=== PATIENT | female | born 1990 | race Caucasian/White ===

== ENCOUNTER 2019-06-10 19:17 | Inpatient (IN) | payer OTHER, MEDICAID, SELFPAY ==
[2019-06-10] VITALS (7 sets, daily range): BP systolic 116–132; BP diastolic 73–85; PULSE 116–142; RESP 17–24; TEMP 36.6; O2SAT 96–100; BMI 28.0
--- NOTE | 2019-06-10 20:04 | PC.NURSE ---
2 attempt to start iv, no success
--- NOTE | 2019-06-10 20:15 | ED_ITS ---
HPI - Chest Pain General Chief Complaint: Chest Pain Stated Complaint: STATES ENDOCARDITIS, NEEDS VANCOMYCIN Time Seen by Provider: 06/10/19 19:35 Source: patient Mode of arrival: ambulatory Limitations: no limitations History of Present Illness HPI narrative: This patient is a 28-year-old female with a history of heroin and methamphetamine abuse. She presented at [facility] in [place], [place] 06/01/2019 for left leg pain. There is no evidence of DVT. Septic pulmonary emboli were noted on chest x-ray. CTA of the chest showed evidence of PE, septic pulmonary emboli were again identified. She also had a left thigh abscess. She was transferred to [facility] for probable endocarditis. Echo revealed vegetation associated with the tricuspid valve. An I and D was also performed on an abscessed the left thigh. This was a site of drug injections. She was receiving IV vancomycin through a PICC line since the original diagnosis. Today she was to be transferred back to [facility] from [facility] for ongoing treatment. Blood cultures have revealed MRSA. The intent was ongoing IV vancomycin treatment for the 5 weeks. After arrival at [facility] the patient apparently came in an argument. During admission process he went to leave for cigarette. She ended up leaving Against Medical Advice, the PICC line was pulled. She comes here tonight asking for IV vancomycin. Records reveals she was on a regimen of 750 mg IV every 8 hr. She was approximately 4 hr behind schedule upon presentation here. She has been without heroin or methamphetamine since initial presentation to the hospitals. She has been treated with Suboxone since admission. She has also received Ativan and clonidine for withdrawal symptoms. She denies fever chills. She has tachycardia but no chest discomfort. She has ongoing left leg pain, her original presentation. Related Data Allergies Allergy/AdvReac Type Severity Reaction Status Date / Time No Known Drug Allergies Allergy Verified 06/10/19 19:28 Review of Systems Review of Systems ROS Unobtainable: All systems reviewed & are unremarkable except as noted in HPI and below Constitutional Reports body ache(s), Denies chills, Denies fever(s) and Denies weakness Eyes Comments: No act complaints. ENT Ears, Nose, Mouth, and Throat: Denies vertigo, Denies dizziness, Denies neck pain and Denies sore throat Cardiovascular Denies chest pain, Denies edema, Reports palpitations and Denies dyspnea Respiratory Denies cough and Denies dyspnea Gastrointestinal Gastrointestinal: Denies change in bowel habits, Denies cramping, Denies diarrhea, Denies nausea and Denies vomiting Genitourinary Denies dysuria Comments: Not , confirmed by recent care testing. Musculoskeletal Denies neck pain and Denies numbness Comments: Left lower extremity pain. Integumentary/Breasts Denies rash and Reports wounds (Left leg operative site.) Neurologic Denies confusion, Denies vertigo, Denies dizziness, Denies numbness and Denies weakness Psychiatric Reports anxiety, Denies confusion and Denies depression Endocrine Reports palpitations [facility] Medical History (Updated 06/11/19 @ 05:20 by Michael Tyson MD) Abscess of left leg (Acute) Endocarditis (Acute) IV drug abuse (Acute) Social History Smoking Status: Current every day smoker Social History (Updated 06/11/19 @ 05:00 by Michael Tyson MD) Smoking Status: Current every day smoker substance use type: marijuana, heroin and methamphetamine Exam Initial Vital Signs Initial Vital Signs: Vital Signs Pulse Rate 142 H 06/10/19 19:29 Respiratory Rate 17 06/10/19 19:29 Blood Pressure 132/78 06/10/19 19:29 Pulse Oximetry 100 06/10/19 19:29 Const General: cooperative, anxious and No lethargic Nutritional Appearance: well nourished Orientation: alert, awake and oriented x3 HENMT Head: normocephalic and atraumatic Mouth: oral mucosae normal and moist mucous membranes Throat: posterior oropharynx normal Eyes Conjunctivae: conjunctivae normal Pupils: PERRL EOM: EOM intact bilaterally Neck Neck: no meningeal signs and No lymphadenopathy Resp Effort & Inspection: normal respiratory effort Auscultation: clear to auscultation bilaterally Cardio Rate: tachycardic Rhythm: regular rhythm Heart Sounds: S1 normal, S2 normal and no murmurs GI Inspection: normal to inspection Palpation: soft and No tender Back/Spine/Pelvis Back: No back tenderness Skin Other: Track dudley. Multiple contusions in both arms from injections. Healing surgical site in the left anterior thigh. Neuro General: alert, oriented x3, gait normal and no focal motor deficits Speech: speech normal Extrem Other: Normal peripheral pulses in all extremities. Psych Appearance: well kempt Mental Status: mental status grossly normal Attitude: cooperative Thought Content: normal Judgment: judgment good Course Course Narrative: 11:30PM. 06/10/2019.A PICC nurse was consulted. A right arm PICC line was again established. Chest x-ray confirmed appropriate placement. IV vancomycin 1250 mg was given. She was scheduled for a swing bed at [facility], this is a community where she lives and resides. She desires to return there. [place] is a critical access hospital. I contacted the ER physician, Dr. Trejo, 2 times during this shift. [facility] has a telemedicine hospitalist program in the evenings/at night. I have been unable to reach the hospitalist directly. She will be managed in the ER until morning, pursuing transfer back to [facility] in the morning. 07:30. 06/11/2019. Contact was not made with the hospitalist, or apparently the swing regional flatbed truck driver at [facility] last night. [facility] was being called again this morning, apparently the manager meat for the swing beds is not in yet. The patient has been given a 2nd dose of IV vancomycin here in the ER. During this shift last night I did discuss the case with the local hospitalist, JENNY Gonzales. The intent was to possibly keep the patient here long enough to secure the swing bed at [facility], she will require 5 weeks of IV antibiotic therapy. Disposition is still pending. The case was discussed with my partner here in the ER, Dr. Quick. Necessary care for IV antibiotics and meds for detox has been taken care of through the night. Dr. Quick will follow through with disposition. Orders Ordered: ED Orders 06/10/19 23:25 Basic Metabolic Panel Stat Blood Culture Stat Complete Blood Count AUTO DIFF Stat Lactate (Lactic Acid) Stat Vancomycin HCl/Dextrose (Vancomycin) 750 mg in 150 mls @ 150 mls/hr IV NOW ONE Stop: 06/11/19 08:21 Discontinued Medications Clonidine HCl (Catapres) 0.1 mg PO NOW ONE Stop: 06/11/19 00:41 Last Admin: 06/11/19 00:45 Dose: 0.1 mg Clonidine HCl (Catapres) 0.1 mg PO NOW ONE Stop: 06/11/19 05:21 Last Admin: 06/11/19 05:41 Dose: 0.1 mg Vancomycin HCl 1,250 mg/ (Sodium Chloride) 250 mls @ 250 mls/hr IV NOW ONE Stop: 06/10/19 22:59 Last Infusion: 06/11/19 00:41 Dose: 0 mls/hr Admin: 06/10/19 23:28 Dose: 250 mls/hr Ketorolac Tromethamine (Toradol) 30 mg IV NOW ONE Stop: 06/11/19 03:49 Last Admin: 06/11/19 03:59 Dose: 30 mg Lorazepam (Ativan) 1 mg PO NOW ONE Stop: 06/11/19 00:41 Last Admin: 06/11/19 00:45 Dose: 1 mg Lorazepam (Ativan) 1 mg PO NOW ONE Stop: 06/11/19 05:21 Last Admin: 06/11/19 05:26 Dose: 1 mg Vital Signs - 8 hr 06/10/19 23:55 06/11/19 00:48 06/11/19 02:28 Pulse Rate 116 H 115 H 106 H Respiratory Rate 20 18 Blood Pressure [Left Arm] 123/73 127/88 121/79 Pulse Oximetry 96 99 98 06/11/19 03:53 06/11/19 05:30 Pulse Rate 126 H 120 H Respiratory Rate 20 Blood Pressure [Left Arm] 136/87 131/81 Pulse Oximetry 97 96 MDM - Chest Pain Lab Data Result diagrams: 06/10/19 23:25 06/10/19 23:25 Lab Results 06/10/19 06/10/19 06/10/19 Range/Units 20:42 23:25 23:25 WBC 12.3 H (4.5-11.0) X10^3/uL RBC 3.50 L (4.0-5.2) X10^6/uL Hgb 9.4 L (12.0-16.0) g/dL Hct 28.2 L (36-46) % MCV 80.7 (80-100) fL MCH 26.8 (26-34) PG MCHC 33.2 (30-36) % RDW 16.4 H (11.6-14.8) % Plt Count 861 H (150-400) X10^3/uL Neut % (Auto) 56.0 (50-75) % Lymph % (Auto) 34.9 (25-40) % [place] % (Auto) 6.3 (3-14) % Eos % (Auto) 1.5 L (2-4) % Baso % (Auto) 1.3 (0-2) % Neut # (Auto) 6900 (7310-5644) /uL Lymph # (Auto) 4300 (6588-0410) /uL [place] # (Auto) 800 (0-900) /uL Eos # (Auto) 200 (0-450) /uL Baso # (Auto) 200 H (0-100) /uL Platelet Estimate Increased on smear RBC Morphology Not Reportable Sodium 139 (137-145) mmol/L Potassium 4.3 (3.4-5.1) mmol/L Chloride 101 (98-107) mmol/L Carbon Dioxide 29 (22-32) mmol/L BUN 19 H (7-17) mg/dL Creatinine 0.60 (0.52-1.04) mg/dL Estimated GFR > 60.0 (>60) mL/min BUN/Creatinine Ratio 31.7 H (6-22) Glucose 112 H (70-100) mg/dL Lactate (0.7-2.1) mmol/L Calcium 9.8 (8.4-10.2) mg/dL Urine Opiates Screen Negative (Negative) Ur Oxycodone Screen Positive H (Negative) Urine Methadone Screen Negative (Negative) Ur Barbiturates Screen Negative (Negative) U Tricyclic Antidepress Negative (Negative) Ur Phencyclidine Scrn Negative (Negative) Ur Amphetamines Screen Negative (Negative) U Methamphetamines Scrn Negative (Negative) Ur MDMA Scrn (Ecstasy) Negative (Negative) U Benzodiazepines Scrn Positive H (Negative) Urine Cocaine Screen Negative (Negative) U Marijuana (THC) Screen Positive H (Negative) 06/10/19 Range/Units 23:25 WBC (4.5-11.0) X10^3/uL RBC (4.0-5.2) X10^6/uL Hgb (12.0-16.0) g/dL Hct (36-46) % MCV (80-100) fL MCH (26-34) PG MCHC (30-36) % RDW (11.6-14.8) % Plt Count (150-400) X10^3/uL Neut % (Auto) (50-75) % Lymph % (Auto) (25-40) % [place] % (Auto) (3-14) % Eos % (Auto) (2-4) % Baso % (Auto) (0-2) % Neut # (Auto) (2337-0323) /uL Lymph # (Auto) (7582-9484) /uL [place] # (Auto) (0-900) /uL Eos # (Auto) (0-450) /uL Baso # (Auto) (0-100) /uL Platelet Estimate RBC Morphology Sodium (137-145) mmol/L Potassium (3.4-5.1) mmol/L Chloride (98-107) mmol/L Carbon Dioxide (22-32) mmol/L BUN (7-17) mg/dL Creatinine (0.52-1.04) mg/dL Estimated GFR (>60) mL/min BUN/Creatinine Ratio (6-22) Glucose (70-100) mg/dL Lactate 1.1 (0.7-2.1) mmol/L Calcium (8.4-10.2) mg/dL Urine Opiates Screen (Negative) Ur Oxycodone Screen (Negative) Urine Methadone Screen (Negative) Ur Barbiturates Screen (Negative) U Tricyclic Antidepress (Negative) Ur Phencyclidine Scrn (Negative) Ur Amphetamines Screen (Negative) U Methamphetamines Scrn (Negative) Ur MDMA Scrn (Ecstasy) (Negative) U Benzodiazepines Scrn (Negative) Urine Cocaine Screen (Negative) U Marijuana (THC) Screen (Negative) Point of Care Testing Test Results Negative Urine Dip Bedside Urine Glucose Negative Bedside Urine Bilirubin - Negative Bedside Urine Ketone - Negative Urine Specific [place] 1.020 Bedside Urine Occult Blood - Negative Bedside Urine pH 6.0 Bedside Urine Protein +/- 15 Bedside Urine Urobilinogen +/- 1mg Bedside Urine Nitrite - Negative Bedside Urine Leukocytes - Negative Esterase Imaging Data Chest x-ray: My impression: Right PICC line placement is confirmed. ECG Data Attestation: I personally reviewed and interpreted this ECG as follows: (Sinus tachycardia rate 129 bpm. Normal intervals. No ectopy. No acute ST T wave changes.) Discharge Plan Departure Patient Disposition: [facility] Clinical Impression: Drug abuse, IV Endocarditis Qualifiers: Endocarditis type: infective Infective endocarditis organism: bacterial Chronicity: acute Qualified Code(s): I33.0 - Acute and subacute infective endocarditis
--- NOTE | 2019-06-10 20:40 | PC.NURSE ---
has history of iv drug use. had been in [facility] for about 1 week with endocarditis. was being transferred to [facility] and had left [place] due to the way she was being treated.
[2019-06-10 21:04] LABS: Urine Amphetamines Negative (Negative); Urine Barbiturates Negative (Negative); Urine Benzodiazepines Positive (Negative); Urine Cocaine Negative (Negative); Urine MDMA Negative (Negative); Urine Methadone Negative (Negative); Urine Methamphetamines Negative (Negative); Urine Morphine/Opi cutoff 2000 Negative (Negative); Urine Oxycodone Positive (Negative); Urine Phencyclidine Negative (Negative); Urine Tetrahydrocannabinol Positive (Negative); Urine Tricyclic Antidepressant Negative (Negative)
--- NOTE | 2019-06-10 22:07 | PC.NURSE ---
Precision Picc placement at bedside.
--- NOTE | 2019-06-10 22:29 | DI.RAD.S_ITS ---
PROCEDURE: XR CHEST FOR PICC 1V INDICATIONS: picc verification TECHNIQUE: One view of the chest was acquired. COMPARISON: Lung bases on CT abdomen and pelvis 03/25/2018. FINDINGS: Surgical changes and devices: Right-sided PICC line with the catheter tip terminating at the cavoatrial junction in the expected location. Lungs and pleura: Lungs are clear. No pleural effusions or pneumothorax. Mediastinum: Mediastinal contours appear normal. Heart size is normal. Bones and chest wall: No suspicious bony lesions. Overlying soft tissues appear unremarkable. IMPRESSION: Right-sided PICC line with the tip terminating in at the cavoatrial junction and the expected location. No pneumothorax. Dictated by: Marcelino Nunez M.D. on 06/11/2019 at 7:57 Approved by: Marcelino Nunez M.D. on 06/11/2019 at 7:57
[2019-06-10] MEDS: VANCOMYCIN 1,250 MG in SODIUM CHLORIDE 0.9% 250 ML IV (23:28)
[2019-06-10 23:36] LABS: Add Manual Diff / Slide Review NO; Basophils Absolute Auto 200 /uL (0-100); Basophils Percent Auto 1.3 % (0-2); Eosinophils Absolute Auto 200 /uL (0-450); Eosinophils Percent Auto 1.5 % (2-4); Hematocrit 28.2 % (36-46); Hemoglobin 9.4 g/dL (12.0-16.0); Lymphocytes Absolute Auto 4300 /uL (1100-4500); Lymphocytes Percent Auto 34.9 % (25-40); Mean Corpuscular HGB Conc 33.2 % (30-36); Mean Corpuscular Hemoglobin 26.8 PG (26-34); Mean Corpuscular Volume 80.7 fL (80-100); Monocytes Absolute Auto 800 /uL (0-900); Monocytes Percent Auto 6.3 % (3-14); Neutrophils Absolute Auto 6900 /uL (1500-7000); Platelet Count 861 X10^3/uL (150-400); Red Cell Distribution Width 16.4 % (11.6-14.8); White Blood Cell Count 12.3 X10^3/uL (4.5-11.0)
[2019-06-10 23:47] LABS: BUN Creatinine Ratio 31.7 (6-22); Blood Urea Nitrogen 19 mg/dL (7-17); Calcium 9.8 mg/dL (8.4-10.2); Carbon Dioxide 29 mmol/L (22-32); Chloride 101 mmol/L (98-107); Estimated Glomerular Filt Rate > 60.0 mL/min (>60); Glucose 112 mg/dL (70-100); HEMOLYSIS < 15 (0-50); Lactate (Lactic Acid) 1.1 mmol/L (0.7-2.1); Potassium 4.3 mmol/L (3.4-5.1); Sodium 139 mmol/L (137-145)
[2019-06-10 23:52] LABS: Platelet Estimate Increased on smear
[2019-06-11] VITALS (10 sets, daily range): BP systolic 110–136; BP diastolic 57–88; PULSE 97–132; RESP 14–20; TEMP 36.4–36.7; O2SAT 96–100; BMI 28.0
[2019-06-11] MEDS: cloNIDine 0.1 MG TABLET PO ×3 (00:45→14:34)
[2019-06-11] MEDS: LORazepam 0.5 MG TABLET 1 MG PO ×2 (00:45→05:26)
--- NOTE | 2019-06-11 02:39 | PC.NURSE ---
She was given ativan and clonidine due to the fact that she did not have her suboxone tonight,she stated she felt calmer after.
[2019-06-11] MEDS: KETOROLAC 60 MG/2 ML VIAL 30 MG IV (03:59)
--- NOTE | 2019-06-11 05:19 | PC.NURSE ---
She stated she feels like she is crawling out of her skin,has hot and cold flashes.DR Tyson aware.
[2019-06-11] MEDS: VANCOMYCIN 750 MG/150 ML FROZ.PIGGY 150 MG IV ×3 (08:02→21:16)
--- NOTE | 2019-06-11 08:02 | PC.NURSE ---
No security staff at the facility this morning, with the Doctors permission I walked the patient across the street so she could smoke. She was cooperative.
[2019-06-11] MEDS: ONDANSETRON 4 MG/2 ML INJ IV (08:16)
[2019-06-11] MEDS: LORazepam 0.5 MG TABLET 2 MG PO (10:30)
--- NOTE | 2019-06-11 12:59 | PM.HP.1 ---
History of Present Illness Date Patient Seen: 06/11/19 Chief complaint: STATES ENDOCARDITIS, NEEDS VANCOMYCIN Narrative: The patient is a 28-year-old female with a history of IV drug abuse, bipolar disease, new diagnosis of tricuspid valve endocarditis, MRSA bacteremia, septic emboli with cavitary lesions of the lung, septic left hip status post I&D, who was admitted to [facility] in [place] for evaluation of left hip pain. Patient's course was complicated but ultimately was found to have MRSA bacteremia. A transesophageal echocardiogram was obtained which showed a mobile echogenic structure involving the tricuspid valve. This was felt to be a vegetation. She had moderate tricuspid regurgitation. Her MRSA was susceptible to vancomycin. Infectious Disease was consulted and she was continued on IV Vanco. Her white count improved, she was hemodynamically stable. Patient was also found to have cavitary lung lesions on CT a. These were felt to be septic emboli and were improving on her prior chest x-ray. She complained of pain in the left hip and underwent a fluid aspiration of the hip or the cultures were positive for MRSA. Patient had an orthopedic surgery consult and had a washout of the left hip on June 05, 2019. Patient has a history of IV heroin and meth use. She last used meth and heroin about 1 week ago. The patient was also started on Suboxone 12 mg twice daily. The recommendation was for her to continue 6 weeks of IV antibiotics completing this on July 17. The patient was transferred to [facility] to their swing bed for ongoing antibiotic treatment. Patient got to [facility] apparently had an altercation with the nurse and left the hospital Against Medical Advice. The PICC line was pulled and the patient left the facility. She presented to [facility] for vancomycin treatment. Patient did receive a dose of Vanco with the plans for her to be transferred back to [facility]. Unfortunately there were no beds available for her. Attempts were made for her to be transferred back to [facility] however it was felt the would not be indicated. The patient is admitted to the hospital at this time awaiting placement for long-term IV antibiotic treatment for her endocarditis. The patient has not taken her Suboxone in several hours. She reports feeling sick, ill all over, she feels like she is withdrawing from opiates. She has had some nausea, she had an episode of vomiting last night, no hematemesis melena or bright red blood per rectum. Patient does report some bleeding from her rectum with a hard stool. She has no dysuria hematuria or pyuria she has had no fevers. Patient History Medical History (Updated 06/11/19 @ 13:05 by Amie Hardy MD) Abscess of left leg (Acute) Bipolar affective disorder (Acute) Endocarditis (Acute) IV drug abuse (Acute) Family History (Updated 06/11/19 @ 13:04 by Amie Hardy MD) Mother Methamphetamine addiction Social History (Updated 06/11/19 @ 05:00 by Michael Tyson MD) household members: friend(s) Smoking Status: Current every day smoker alcohol intake: former substance use type: marijuana, heroin and methamphetamine Family & Social History Family History (Updated 06/11/19 @ 13:04 by Amie Hardy MD) Mother Methamphetamine addiction Social History: household members friend(s) Prior Living Arrangements Homeless Safety & Behavioral: Feels Safe in Current Yes Environment Been Physically Hurt or No Threatened By a Person Suicidal Ideation Description None Suicide Plan Description No Plan Tobacco & Substance use: Tobacco type cigarettes,cannabis/marijuana Smoking Status Current every day smoker Smoking packs per day 0.5 alcohol intake former alcohol intake frequency other Substance Use Type marijuana,heroin,methamphetamine Meds Allergies Allergy/AdvReac Type Severity Reaction Status Date / Time No Known Drug Allergies Allergy Verified 06/10/19 19:28 Review of Systems Review of Systems All systems reviewed & are unremarkable except as noted in HPI and below Exam Vital Signs (past 8 hours): - 06/11/19 05:30 06/11/19 08:01 06/11/19 08:20 Temperature 97.6 F Pulse Rate 120 H 97 H Respiratory Rate 20 14 Blood Pressure [Left Arm] 131/81 110/70 Pulse Oximetry 96 99 06/11/19 10:34 06/11/19 11:48 Temperature Pulse Rate 101 H 102 H Respiratory Rate 18 18 Blood Pressure [Left Arm] 110/57 L 112/68 Pulse Oximetry 98 99 Oxygen Delivery Method Room Air Narrative Exam Narrative: Withdrawn ill-appearing female HEENT: Normocephalic atraumatic, extraocular muscles are intact, oropharynx is clear, neck is supple, there is no adenopathy Lungs: Clear to auscultation Cardiac exam: Regular rate and rhythm normal S1-S2 with a 2/6 systolic ejection murmur Abdomen soft nontender nondistended without hepatosplenomegaly Extremities: No edema, left hip with Steri-Strips in Neuro exam: Nonfocal Skin: Tattoos on the abdomen no other lesions noted Objective Labs Result Diagrams: 06/10/19 23:25 06/10/19 23:25 Labs: Laboratory Results - last 24 hr 06/10/19 06/10/19 06/10/19 20:42 23:25 23:25 WBC 12.3 H RBC 3.50 L Hgb 9.4 L Hct 28.2 L MCV 80.7 MCH 26.8 MCHC 33.2 RDW 16.4 H Plt Count 861 H Neut % (Auto) 56.0 Lymph % (Auto) 34.9 [place] % (Auto) 6.3 Eos % (Auto) 1.5 L Baso % (Auto) 1.3 Neut # (Auto) 6900 Lymph # (Auto) 4300 [place] # (Auto) 800 Eos # (Auto) 200 Baso # (Auto) 200 H Platelet Estimate Increased on smear RBC Morphology Not Reportable Sodium 139 Potassium 4.3 Chloride 101 Carbon Dioxide 29 BUN 19 H Creatinine 0.60 Estimated GFR > 60.0 BUN/Creatinine Ratio 31.7 H Glucose 112 H Lactate Calcium 9.8 Urine Opiates Screen Negative Ur Oxycodone Screen Positive H Urine Methadone Screen Negative Ur Barbiturates Screen Negative U Tricyclic Antidepress Negative Ur Phencyclidine Scrn Negative Ur Amphetamines Screen Negative U Methamphetamines Scrn Negative Ur MDMA Scrn (Ecstasy) Negative U Benzodiazepines Scrn Positive H Urine Cocaine Screen Negative U Marijuana (THC) Screen Positive H 06/10/19 23:25 WBC RBC Hgb Hct MCV MCH MCHC RDW Plt Count Neut % (Auto) Lymph % (Auto) [place] % (Auto) Eos % (Auto) Baso % (Auto) Neut # (Auto) Lymph # (Auto) [place] # (Auto) Eos # (Auto) Baso # (Auto) Platelet Estimate RBC Morphology Sodium Potassium Chloride Carbon Dioxide BUN Creatinine Estimated GFR BUN/Creatinine Ratio Glucose Lactate 1.1 Calcium Urine Opiates Screen Ur Oxycodone Screen Urine Methadone Screen Ur Barbiturates Screen U Tricyclic Antidepress Ur Phencyclidine Scrn Ur Amphetamines Screen U Methamphetamines Scrn Ur MDMA Scrn (Ecstasy) U Benzodiazepines Scrn Urine Cocaine Screen U Marijuana (THC) Screen Assessment & Plan Assessment & Plan narrative: 1. 28-year-old female with a history of MRSA endocarditis, patient with a history of IVDA, heroin use, methamphetamine use, patient underwent extensive workup at [facility] in [place]. Echocardiogram reveals a projectile mobile mass involving the tricuspid valve. There was found to be moderate tricuspid regurgitation as well. Plans were made for the patient to transfer to [facility] for ongoing antibiotics. The patient was to take vancomycin 750 mg IV q.8 hours for 5 weeks. She left the facility abruptly in presented to this hospital. The patient has been restarted on her vancomycin, plans are to anticipate discharge back to [facility] or another facility for long-term IV antibiotics. 2. History of opioid addiction, patient on Suboxone she currently is withdrawing at this time. Will resume Suboxone. Will continue with clonidine and Ativan as needed as well. 3. Nicotine addiction, resume nicotine patch 4. Bipolar affective disorder, currently untreated, continue with Ativan as needed 5. History of hip infection status post I&D of the left hip, currently on any treatment for MRSA endocarditis which will cover this as well. 6. , septic emboli of the chest, this has been improving. Will follow up with chest x-ray and continue antibiotics as above. Anemia chronic, Patient is been admitted to the hospital and will continue her IV vancomycin. Will arrange for transfer as soon as this can be arranged. Will repeat ESR CRP and procalcitonin. Will continue her on her nicotine patch Suboxone and clonidine. Will continue other usual medications as prescribed following her discharge. The patient is a full code will note this in her record accordingly. Quality VTE Deep Vein Thrombosis/Pulmonary Embolism Present on Admission: No
--- NOTE | 2019-06-11 13:10 | P.HP_ITS ---
History of Present Illness Date Patient Seen: 06/11/19 Chief complaint: STATES ENDOCARDITIS, NEEDS VANCOMYCIN Narrative: The patient is a 28-year-old female with a history of IV drug abuse, bipolar disease, new diagnosis of tricuspid valve endocarditis, MRSA bacteremia, septic emboli with cavitary lesions of the lung, septic left hip status post I&D, who was admitted to [facility] in [place] for evaluation of left hip pain. Patient's course was complicated but ultimately was found to have MRSA bacteremia. A transesophageal echocardiogram was obtained which showed a mobile echogenic structure involving the tricuspid valve. This was felt to be a vegetation. She had moderate tricuspid regurgitation. Her MRSA was susceptible to vancomycin. Infectious Disease was consulted and she was continued on IV Vanco. Her white count improved, she was hemodynamically stable. Patient was also found to have cavitary lung lesions on CT a. These were felt to be septic emboli and were improving on her prior chest x-ray. She complained of pain in the left hip and underwent a fluid aspiration of the hip or the cultures were positive for MRSA. Patient had an orthopedic surgery consult and had a washout of the left hip on June 05, 2019. Patient has a history of IV heroin and meth use. She last used meth and heroin about 1 week ago. The patient was also started on Suboxone 12 mg twice daily. The recommendation was for her to continue 6 weeks of IV antibiotics completing this on July 17. The patient was transferred to [facility] to their swing bed for ongoing antibiotic treatment. Patient got to [facility] apparently had an altercation with the nurse and left the hospital Against Medical Advice. The PICC line was pulled and the patient left the facility. She presented to [facility] Emergency Department for vancomycin treatment. Patient did receive a dose of Vanco with the plans for her to be transferred back to [facility]. Unfortunately there were no beds available for her. Attempts were made for her to be transferred back to [facility] however it was felt the would not be indicated. The patient is admitted to the hospital at this time awaiting placement for long-term IV antibiotic treatment for her endocarditis. The patient has not taken her Suboxone in several hours. She reports feeling sick, ill all over, she feels like she is withdrawing from opiates. She has had some nausea, she had an episode of vomiting last night, no hematemesis melena or bright red blood per rectum. Patient does report some bleeding from her rectum with a hard stool. She has no dysuria hematuria or pyuria she has had no fevers. Patient History Medical History (Updated 06/11/19 @ 13:05 by Amie Hardy MD) Abscess of left leg (Acute) Bipolar affective disorder (Acute) Endocarditis (Acute) IV drug abuse (Acute) Family History (Updated 06/11/19 @ 13:04 by Amie Hardy MD) Mother Methamphetamine addiction Social History (Updated 06/11/19 @ 05:00 by Michael Tyson MD) household members: friend(s) Smoking Status: Current every day smoker alcohol intake: former substance use type: marijuana, heroin and methamphetamine Family & Social History Family History (Updated 06/11/19 @ 13:04 by Amie Hardy MD) Mother Methamphetamine addiction Social History: household members friend(s) Prior Living Arrangements Homeless Safety & Behavioral: Feels Safe in Current Yes Environment Been Physically Hurt or No Threatened By a Person Suicidal Ideation Description None Suicide Plan Description No Plan Tobacco & Substance use: Tobacco type cigarettes,cannabis/marijuana Smoking Status Current every day smoker Smoking packs per day 0.5 alcohol intake former alcohol intake frequency other Substance Use Type marijuana,heroin,methamphetamine Meds Allergies Allergy/AdvReac Type Severity Reaction Status Date / Time No Known Drug Allergies Allergy Verified 06/10/19 19:28 Review of Systems Review of Systems All systems reviewed & are unremarkable except as noted in HPI and below Exam Vital Signs (past 8 hours): - 06/11/19 05:30 06/11/19 08:01 06/11/19 08:20 Temperature 97.6 F Pulse Rate 120 H 97 H Respiratory Rate 20 14 Blood Pressure [Left Arm] 131/81 110/70 Pulse Oximetry 96 99 06/11/19 10:34 06/11/19 11:48 Temperature Pulse Rate 101 H 102 H Respiratory Rate 18 18 Blood Pressure [Left Arm] 110/57 L 112/68 Pulse Oximetry 98 99 Oxygen Delivery Method Room Air Narrative Exam Narrative: Withdrawn ill-appearing female HEENT: Normocephalic atraumatic, extraocular muscles are intact, oropharynx is clear, neck is supple, there is no adenopathy Lungs: Clear to auscultation Cardiac exam: Regular rate and rhythm normal S1-S2 with a 2/6 systolic ejection murmur Abdomen soft nontender nondistended without hepatosplenomegaly Extremities: No edema, left hip with Steri-Strips in Neuro exam: Nonfocal Skin: Tattoos on the abdomen no other lesions noted Objective Labs Result Diagrams: 06/10/19 23:25 06/10/19 23:25 Labs: Laboratory Results - last 24 hr 06/10/19 06/10/19 06/10/19 20:42 23:25 23:25 WBC 12.3 H RBC 3.50 L Hgb 9.4 L Hct 28.2 L MCV 80.7 MCH 26.8 MCHC 33.2 RDW 16.4 H Plt Count 861 H Neut % (Auto) 56.0 Lymph % (Auto) 34.9 [place] % (Auto) 6.3 Eos % (Auto) 1.5 L Baso % (Auto) 1.3 Neut # (Auto) 6900 Lymph # (Auto) 4300 [place] # (Auto) 800 Eos # (Auto) 200 Baso # (Auto) 200 H Platelet Estimate Increased on smear RBC Morphology Not Reportable Sodium 139 Potassium 4.3 Chloride 101 Carbon Dioxide 29 BUN 19 H Creatinine 0.60 Estimated GFR > 60.0 BUN/Creatinine Ratio 31.7 H Glucose 112 H Lactate Calcium 9.8 Urine Opiates Screen Negative Ur Oxycodone Screen Positive H Urine Methadone Screen Negative Ur Barbiturates Screen Negative U Tricyclic Antidepress Negative Ur Phencyclidine Scrn Negative Ur Amphetamines Screen Negative U Methamphetamines Scrn Negative Ur MDMA Scrn (Ecstasy) Negative U Benzodiazepines Scrn Positive H Urine Cocaine Screen Negative U Marijuana (THC) Screen Positive H 06/10/19 23:25 WBC RBC Hgb Hct MCV MCH MCHC RDW Plt Count Neut % (Auto) Lymph % (Auto) [place] % (Auto) Eos % (Auto) Baso % (Auto) Neut # (Auto) Lymph # (Auto) [place] # (Auto) Eos # (Auto) Baso # (Auto) Platelet Estimate RBC Morphology Sodium Potassium Chloride Carbon Dioxide BUN Creatinine Estimated GFR BUN/Creatinine Ratio Glucose Lactate 1.1 Calcium Urine Opiates Screen Ur Oxycodone Screen Urine Methadone Screen Ur Barbiturates Screen U Tricyclic Antidepress Ur Phencyclidine Scrn Ur Amphetamines Screen U Methamphetamines Scrn Ur MDMA Scrn (Ecstasy) U Benzodiazepines Scrn Urine Cocaine Screen U Marijuana (THC) Screen Assessment & Plan Assessment & Plan narrative: 1. 28-year-old female with a history of MRSA endocarditis, patient with a history of IVDA, heroin use, methamphetamine use, patient underwent extensive workup at [facility] in [place]. Echocardiogram reveals a projectile mobile mass involving the tricuspid valve. There was found to be moderate tricuspid regurgitation as well. Plans were made for the patient to transfer to [facility] for ongoing antibiotics. The patient was to take vancomycin 750 mg IV q.8 hours for 5 weeks. She left the facility abruptly in presented to this hospital. The patient has been restarted on her vancomycin, plans are to anticipate discharge back to [facility] or another facility for long-term IV antibiotics. 2. History of opioid addiction, patient on Suboxone she currently is withdrawing at this time. Will resume Suboxone. Will continue with clonidine and Ativan as needed as well. 3. Nicotine addiction, resume nicotine patch 4. Bipolar affective disorder, currently untreated, continue with Ativan as needed 5. History of hip infection status post I&D of the left hip, currently on any treatment for MRSA endocarditis which will cover this as well. 6. , septic emboli of the chest, this has been improving. Will follow up with chest x-ray and continue antibiotics as above. Anemia chronic, Patient is been admitted to the hospital and will continue her IV vancomycin. Will arrange for transfer as soon as this can be arranged. Will repeat ESR CRP and procalcitonin. Will continue her on her nicotine patch Suboxone and clonidine. Will continue other usual medications as prescribed following her discharge. The patient is a full code will note this in her record accordingly. Quality VTE Deep Vein Thrombosis/Pulmonary Embolism Present on Admission: No
--- NOTE | 2019-06-11 13:26 | PC.NURSE ---
Day Shift- Report rec'd from LizetteRN in ED at 1148. Pt arrived to unit room 216 at 1200, oriented to call light, not aloud to leave unit unless escorted with staff member for medical reason. Pt stated she understood. Dr. Hardy updated at 1235, request to continue Nicotine patch. Dr. Hardy in to see pt after this time.
[2019-06-11] MEDS: ASPIRIN EC 81 MG TABLET PO (14:06)
[2019-06-11] MEDS: SODIUM CHLORIDE 0.9% 250 ML 21 ML IV (14:08)
[2019-06-11] MEDS: NICOTINE 14 PATCH 14 MG TOP (14:17)
[2019-06-11] MEDS: LORazepam 1 MG TABLET PO ×3 (14:34→22:57)
[2019-06-11 15:08] LABS: C-Reactive Protein Quant 4.4 mg/dL (<1.0)
[2019-06-11 15:09] LABS: Erythrocyte Sedimentation Rate > 140 MM/HR (0-20)
[2019-06-11 15:42] LABS: Procalcitonin < 0.05 ng/mL (<0.5)
[2019-06-11] MEDS: MELATONIN 3 MG TABLET PO (21:17)
[2019-06-11] MEDS: diphenhydrAMINE 25 MG TABLET PO (22:57)
[2019-06-12] VITALS (9 sets, daily range): BP systolic 103–120; BP diastolic 60–75; PULSE 96–112; RESP 14–17; TEMP 36.8–36.9; O2SAT 97–100
[2019-06-12] MEDS: SODIUM CHLORIDE 0.9% FLUSH 10 ML IV (05:58)
[2019-06-12] MEDS: VANCOMYCIN 750 MG/150 ML FROZ.PIGGY 150 MG IV ×3 (05:59→22:43)
[2019-06-12] MEDS: PANTOPRAZOLE 40 MG TABLET PO (06:08)
[2019-06-12] MEDS: ASPIRIN EC 81 MG TABLET PO (08:45)
[2019-06-12] MEDS: NICOTINE 14 PATCH 14 MG TOP (08:45)
--- NOTE | 2019-06-12 09:16 | P.PN_ITS ---
Subjective Date Patient Seen: 06/12/19 Interval history: Patient is a 28-year-old female who was admitted to the [facility] for IV vancomycin for treatment of endocarditis. Patient was discharged from [facility] in [place]. She was to go to [facility] but unfortunately had a disagreement and left the facility. She presented to the emergency room here for treatment of her endocarditis. PICC line was placed, patient was placed back on her vancomycin. She did report feeling symptoms of opioid withdrawal. She was diaphoretic, had headache, had reported some cramping. Today she is somewhat better. She has no complaints. We are awaiting Suboxone which will be delivered to the pharmacy early this afternoon. The patient has no specific complaints today. Exam Vital Signs (past 8 hours): - 06/12/19 05:00 06/12/19 08:00 Temperature 98.3 F 98.2 F Pulse Rate 112 H 96 H Respiratory Rate 16 14 Blood Pressure 120/75 103/60 Pulse Oximetry 100 100 Oxygen Delivery Method Room Air Oxygen Flow Rate 0 Narrative Exam Narrative: Pleasant female resting comfortably in no obvious distress Lungs: Clear to auscultation Cardiac exam: Regular rate rhythm normal S1-S2 with a 2/6 systolic ejection murmur Abdomen: Soft and nontender Extremities: No edema Objective Labs Result Diagrams: 06/10/19 23:25 06/10/19 23:25 Labs: Laboratory Results - last 24 hr 06/11/19 06/11/19 06/11/19 14:12 14:12 14:12 ESR > 140 H C-Reactive Protein 4.4 H Procalcitonin < 0.05 Assessment & Plan Assessment & Plan narrative: ssessment & Plan narrative: 1. 28-year-old female with a history of MRSA endocarditis, patient with a history of IVDA, heroin use, methamphetamine use, patient underwent extensive workup at [facility] in [place]. Echocardiogram reveals a projectile mobile mass involving the tricuspid valve. There was found to be moderate tricuspid regurgitation as well. Plans were made for the patient to transfer to [facility] for ongoing antibiotics. The patient was to take vancomycin 750 mg IV q.8 hours for 5 weeks. She left the facility abruptly in presented to this hospital. The patient has been restarted on her vancomycin, plans are to anticipate discharge back to [facility] or another facility for long-term IV antibiotics. 2. History of opioid addiction, patient on Suboxone she currently is withdrawing at this time. Will resume Suboxone. Will continue with clonidine and Ativan as needed as well. 3. Nicotine addiction, resume nicotine patch 4. Bipolar affective disorder, currently untreated, continue with Ativan as needed 5. History of hip infection status post I&D of the left hip, currently on any treatment for MRSA endocarditis which will cover this as well. 6. , septic emboli of the chest, this has been improving. Will follow up with chest x-ray and continue antibiotics as above. Anemia chronic, Patient is been admitted to the hospital and will continue her IV vancomycin. Will arrange for transfer as soon as this can be arranged. Will repeat ESR CRP and procalcitonin. Will continue her on her nicotine patch Suboxone and clonidine. Will continue other usual medications as prescribed following her discharge. The patient is a full code will note this in her record accordingly. Will discuss with case management today whether transfer back to [facility] can be arranged or whether the patient will need to go to a different [facility] facility for the remaining 6 weeks of her antibiotic therapy. Quality VTE Deep Vein Thrombosis/Pulmonary Embolism Present on Admission: No
[2019-06-12] MEDS: SUBOXONE 1.5 EACH SL ×2 (12:52→21:16)
[2019-06-12] MEDS: ACETAMINOPHEN 325 MG TABLET 650 MG PO (12:53)
[2019-06-12] MEDS: VANCOMYCIN TROUGH 1 REQUEST MISC (13:34)
[2019-06-12 14:19] LABS: Vancomycin Trough 14.9 ug/mL (10-20)
--- NOTE | 2019-06-12 15:31 | CM.IDA ---
Initial DCP Assessment Note: Pt is a 28 yo female,resident of [place]. PCP: Unknown [facility] Healthy Options According to H+P: The patient is a 28-year-old female with a history of IV drug abuse, bipolar disease, new diagnosis of tricuspid valve endocarditis, MRSA bacteremia, septic emboli with cavitary lesions of the lung, septic left hip status post I&D, who was admitted to [facility] in [place] for evaluation of left hip pain. Patient's course was complicated but ultimately was found to have MRSA bacteremia. A transesophageal echocardiogram was obtained which showed a mobile echogenic structure involving the tricuspid valve. This was felt to be a vegetation. She had moderate tricuspid regurgitation. Her MRSA was susceptible to vancomycin. Infectious Disease was consulted and she was continued on IV Vanco. Her white count improved, she was hemodynamically stable. Patient was also found to have cavitary lung lesions on CT a. These were felt to be septic emboli and were improving on her prior chest x-ray. She complained of pain in the left hip and underwent a fluid aspiration of the hip or the cultures were positive for MRSA. Patient had an orthopedic surgery consult and had a washout of the left hip on June 05, 2019. Patient has a history of IV heroin and meth use. She last used meth and heroin about 1 week ago. The patient was also started on Suboxone 12 mg twice daily. The recommendation was for her to continue 6 weeks of IV antibiotics completing this on July 17. The patient was transferred to [facility] to their swing bed for ongoing antibiotic treatment. Patient got to [facility] apparently had an altercation with the nurse and left the hospital Against Medical Advice. The PICC line was pulled and the patient left the facility. She presented to [facility] Emergency Department for vancomycin treatment. Patient did receive a dose of Vanco with the plans for her to be transferred back to [facility]. Unfortunately there were no beds available for her. Attempts were made for her to be transferred back to [facility] however it was felt the would not be indicated. Placed call to [facility] today, spoke candy/pradeep Gomes. She explained that the physician for the swing bed was not going to accept pt at this time. Reason being, pt needed to return to [facility] and get tested for any additional infection that could have been introduced to her line between [facility] and [facility] . Pt left [facility] in a private auto w/ boyfriend, she was en route for 3 hours, arrived to [facility], asked for a cigarette, was denied, then left AMA, PICC was removed. Reviewed above w/ Dr Hardy. Dr Hardy feels strongly that this pt should return to [facility] for her ongoing IV abx; as was arranged originally. Dr Hardy agreeable to additional blood tests to r/o line infection or other and will plan to ask Dr Tavares to call [facility] Friday and she will be back Friday to discuss this case doc to doc. Dr Hardy understands it will be challenging to place this pt in SNF d/t recent departure AMA and current IVDU. Meanwhile, this [employer]PH[employer] INSPECTOR team will hold efforts towards SNF search until Friday when this case can be reviewed again w/the hospitalist , our CM Dept Horse Wrangler Elo, and possibly Xuan Solis, Quality/Risk. UR JUNG Kiser updated on above. Brief CD Assessment to follow. CASSI Azul
--- NOTE | 2019-06-12 15:46 | CM.SWNOTE ---
CD Assessment (brief): See previous HOT IRON WORKER note. This HOT IRON WORKER met briefly w/pt to review efforts towards transfer and discuss pt's treatment goals. Pt is suspicious of this HOT IRON WORKER but agreeable to talking about goals, she explains her goal is to get better and continue efforts towards getting her 1 yo dtr back into her custody, she has an older child that is not in her custody. She has an open CPS case d/t recent drug use and is working with Parent-Child Assistance Program (PCAP) in [place] to get stable housing, continue Suboxone/ CD treatment and has every intention of staying sober after her IV abx course. Pt admits to recent IVDU, denies using her PICC line for use, only weed and states she will not use methadone but thinks Suboxone will help her greatly. Pt says she has been to detox and to [facility] in [place]. She doesn't want to go into inpt drug rehab but wants to do what she needs through available outpt services in order to stay clean. Pt reiterates she has a lot to take care of in order to get her baby back. Pt begins to get uncomfortable as lab attempts to draw blood, pt becoming more anxious. This HOT IRON WORKER left room at this time. HOT IRON WORKER team will follow closely for continued discussion w/pt about her goals for treatment, resources, and coordination of safe [facility]. CASSI Azul
--- NOTE | 2019-06-12 16:13 | PC.NURSE ---
Cardiac: Heart rate to the 120's when up. Pt report she runs a faster heart rate normally. No c/p. did d/c tele. Pt started her suboxone today and she is feeling better. Not as anxious and having issues from w/drawl. Visited by family today. Pt reports she is finally feeling stronger. has been up indep in room. Lt upper thigh/hip incision is steri stripped and w/out redness or drainage. Resting at the moment. Cont w/poc.
[2019-06-12] MEDS: LORazepam 1 MG TABLET PO (18:56)
[2019-06-12] MEDS: MELATONIN 3 MG TABLET PO (21:16)
--- NOTE | 2019-06-12 23:50 | PC.NURSE ---
Evening note: Venus reports anxiety a little better after I gave her lorazepam (see assessment note). HR 100-110 bpm. When going to start her IV Vanco tonight, I found that 1 port, the clear port, would not draw back blood or flush. From 2nd red capped port, I was able to draw back blood and flush line with no difficulty. IV Vanco then started.
[2019-06-13 00:20] VITALS: O2SAT 100
[2019-06-13] MEDS: SODIUM CHLORIDE 0.9% FLUSH 10 ML IV ×2 (00:25→06:34)
[2019-06-13 05:48] VITALS: BP 140/64; PULSE 98; RESP 17; TEMP 36.6; O2SAT 99
[2019-06-13 05:51] LABS: Add Manual Diff / Slide Review NO; Basophils Absolute Auto 200 /uL (0-100); Eosinophils Absolute Auto 300 /uL (0-450); Eosinophils Percent Auto 3.5 % (2-4); Hematocrit 27.3 % (36-46); Hemoglobin 9.1 g/dL (12.0-16.0); Lymphocytes Absolute Auto 3500 /uL (1100-4500); Lymphocytes Percent Auto 41.9 % (25-40); Mean Corpuscular HGB Conc 33.4 % (30-36); Mean Corpuscular Hemoglobin 27.2 PG (26-34); Mean Corpuscular Volume 81.2 fL (80-100); Monocytes Absolute Auto 900 /uL (0-900); Neutrophils Absolute Auto 3500 /uL (1500-7000); Neutrophils Percent Auto 41.6 % (50-75); Platelet Count 571 X10^3/uL (150-400); Red Blood Cell Count 3.36 X10^6/uL (4.0-5.2); Red Cell Distribution Width 16.1 % (11.6-14.8); White Blood Cell Count 8.3 X10^3/uL (4.5-11.0)
[2019-06-13 06:04] LABS: BUN Creatinine Ratio 31.7 (6-22); Blood Urea Nitrogen 19 mg/dL (7-17); Calcium 9.5 mg/dL (8.4-10.2); Carbon Dioxide 31 mmol/L (22-32); Chloride 100 mmol/L (98-107); Estimated Glomerular Filt Rate > 60.0 mL/min (>60); Glucose 104 mg/dL (70-100); HEMOLYSIS < 15 (0-50); Potassium 4.3 mmol/L (3.4-5.1); Sodium 140 mmol/L (137-145)
[2019-06-13] MEDS: PANTOPRAZOLE 40 MG TABLET PO (06:34)
[2019-06-13] MEDS: VANCOMYCIN 750 MG/150 ML FROZ.PIGGY 150 MG IV ×2 (06:34→15:02)
[2019-06-13] MEDS: LORazepam 1 MG TABLET PO ×3 (06:46→20:47)
[2019-06-13] MEDS: ACETAMINOPHEN 325 MG TABLET 650 MG PO (06:46)
[2019-06-13 07:35] VITALS: BP 111/63; PULSE 89; RESP 13; TEMP 36.8; O2SAT 98
[2019-06-13] MEDS: SUBOXONE 1.5 EACH SL ×2 (10:23→18:10)
[2019-06-13] MEDS: NICOTINE 14 PATCH 14 MG TOP (10:24)
[2019-06-13] MEDS: ASPIRIN EC 81 MG TABLET PO (10:24)
--- NOTE | 2019-06-13 11:19 | PM.PN.1 ---
Subjective Date Patient Seen: 06/13/19 Interval history: Patient is a 28-year-old female who was admitted to the hospital for ongoing IV vancomycin for subacute bacterial endocarditis. Patient had a PICC line placed. She reports some tenderness over the PICC line. There is apparently a suture at the PICC line to stabilize it in place she has had no diarrhea. She denies any shortness of breath or chest pain. She has been cooperative and resting comfortably. Exam Vital Signs (past 8 hours): - 06/13/19 05:48 06/13/19 07:35 Temperature 97.8 F 98.3 F Pulse Rate 98 H 89 Respiratory Rate 17 13 Blood Pressure 140/64 111/63 Pulse Oximetry 99 98 Oxygen Delivery Method Room Air Oxygen Flow Rate 0 Narrative Exam Narrative: Pleasant female resting comfortably in no obvious distress Lungs: Clear to auscultation Cardiac exam: Regular rate and rhythm normal S1-S2 with a 2/6 systolic ejection murmur Abdomen: Soft nontender nondistended Extremities: No edema Objective Labs Result Diagrams: 06/13/19 05:40 06/13/19 05:40 Labs: Laboratory Results - last 24 hr 06/12/19 06/13/19 06/13/19 13:30 05:40 05:40 WBC 8.3 RBC 3.36 L Hgb 9.1 L Hct 27.3 L MCV 81.2 MCH 27.2 MCHC 33.4 RDW 16.1 H Plt Count 571 H Neut % (Auto) 41.6 L Lymph % (Auto) 41.9 H [place] % (Auto) 11.0 Eos % (Auto) 3.5 Baso % (Auto) 2.0 Neut # (Auto) 3500 Lymph # (Auto) 3500 [place] # (Auto) 900 Eos # (Auto) 300 Baso # (Auto) 200 H Sodium 140 Potassium 4.3 Chloride 100 Carbon Dioxide 31 BUN 19 H Creatinine 0.60 Estimated GFR > 60.0 BUN/Creatinine Ratio 31.7 H Glucose 104 H Calcium 9.5 Vancomycin Trough 14.9 Assessment & Plan Assessment & Plan narrative: Assessment & Plan narrative: ssessment & Plan narrative: 1. 28-year-old female with a history of MRSA endocarditis, patient with a history of IVDA, heroin use, methamphetamine use, patient underwent extensive workup at [facility] in [place]. Echocardiogram reveals a projectile mobile mass involving the tricuspid valve. There was found to be moderate tricuspid regurgitation as well. Plans were made for the patient to transfer to [facility] for ongoing antibiotics. The patient was to take vancomycin 750 mg IV q.8 hours for 5 weeks. She left the facility abruptly in presented to this hospital. The patient has been restarted on her vancomycin, plans are to anticipate discharge back to [facility] or another facility for long-term IV antibiotics. Patient will need to continue vancomycin until July 17. 2. History of opioid addiction, patient on Suboxone she currently is withdrawing at this time. Will resume Suboxone. Will continue with clonidine and Ativan as needed as well. 3. Nicotine addiction, resume nicotine patch 4. Bipolar affective disorder, currently untreated, continue with Ativan as needed 5. History of hip infection status post I&D of the left hip, currently on any treatment for MRSA endocarditis which will cover this as well. 6. , septic emboli of the chest, this has been improving. Will follow up with chest x-ray and continue antibiotics as above. Anemia chronic, Patient is been admitted to the hospital and will continue her IV vancomycin. Will arrange for transfer as soon as this can be arranged. Will repeat ESR CRP and procalcitonin. Will continue her on her nicotine patch Suboxone and clonidine. Will continue other usual medications as prescribed following her discharge. The patient is a full code will note this in her record accordingly. Will discuss with case management today whether transfer back to [facility] can be arranged or whether the patient will need to go to a different [place] [facility] facility for the remaining 6 weeks of her antibiotic therapy. I discussed with Dr. Calhoun today the possibility of transfer to their swing bed. Unfortunately they do not accept admissions to their swing bed on the weekends. Will call the swing bed game farm supervisor tomorrow for bed availability and whether or not they are willing to accept the patient back for continued treatment. If she is unable to transfer back to [facility] would consider transfer to SNF for continued antibiotic therapy. Quality VTE Deep Vein Thrombosis/Pulmonary Embolism Present on Admission: No
--- NOTE | 2019-06-13 11:23 | P.PN_ITS ---
Subjective Date Patient Seen: 06/13/19 Interval history: Patient is a 28-year-old female who was admitted to the [facility] for ongoing IV vancomycin for subacute bacterial endocarditis. Patient had a PICC line placed. She reports some tenderness over the PICC line. There is apparently a suture at the PICC line to stabilize it in place she has had no diarrhea. She denies any shortness of breath or chest pain. She has been cooperative and resting comfortably. Exam Vital Signs (past 8 hours): - 06/13/19 05:48 06/13/19 07:35 Temperature 97.8 F 98.3 F Pulse Rate 98 H 89 Respiratory Rate 17 13 Blood Pressure 140/64 111/63 Pulse Oximetry 99 98 Oxygen Delivery Method Room Air Oxygen Flow Rate 0 Narrative Exam Narrative: Pleasant female resting comfortably in no obvious distress Lungs: Clear to auscultation Cardiac exam: Regular rate and rhythm normal S1-S2 with a 2/6 systolic ejection murmur Abdomen: Soft nontender nondistended Extremities: No edema Objective Labs Result Diagrams: 06/13/19 05:40 06/13/19 05:40 Labs: Laboratory Results - last 24 hr 06/12/19 06/13/19 06/13/19 13:30 05:40 05:40 WBC 8.3 RBC 3.36 L Hgb 9.1 L Hct 27.3 L MCV 81.2 MCH 27.2 MCHC 33.4 RDW 16.1 H Plt Count 571 H Neut % (Auto) 41.6 L Lymph % (Auto) 41.9 H [place] % (Auto) 11.0 Eos % (Auto) 3.5 Baso % (Auto) 2.0 Neut # (Auto) 3500 Lymph # (Auto) 3500 [place] # (Auto) 900 Eos # (Auto) 300 Baso # (Auto) 200 H Sodium 140 Potassium 4.3 Chloride 100 Carbon Dioxide 31 BUN 19 H Creatinine 0.60 Estimated GFR > 60.0 BUN/Creatinine Ratio 31.7 H Glucose 104 H Calcium 9.5 Vancomycin Trough 14.9 Assessment & Plan Assessment & Plan narrative: Assessment & Plan narrative: ssessment & Plan narrative: 1. 28-year-old female with a history of MRSA endocarditis, patient with a history of IVDA, heroin use, methamphetamine use, patient underwent extensive workup at [facility] in [place]. Echocardiogram reveals a projectile mobile mass involving the tricuspid valve. There was found to be moderate tricuspid regurgitation as well. Plans were made for the patient to transfer to [facility] for ongoing antibiotics. The patient was to take vancomycin 750 mg IV q.8 hours for 5 weeks. She left the facility abruptly in presented to this hospital. The patient has been restarted on her vancomycin, plans are to anticipate discharge back to [facility] or another facility for long-term IV antibiotics. Patient will need to continue vancomycin until July 17. 2. History of opioid addiction, patient on Suboxone she currently is withdrawing at this time. Will resume Suboxone. Will continue with clonidine and Ativan as needed as well. 3. Nicotine addiction, resume nicotine patch 4. Bipolar affective disorder, currently untreated, continue with Ativan as needed 5. History of hip infection status post I&D of the left hip, currently on any treatment for MRSA endocarditis which will cover this as well. 6. , septic emboli of the chest, this has been improving. Will follow up with chest x-ray and continue antibiotics as above. Anemia chronic, Patient is been admitted to the hospital and will continue her IV vancomycin. Will arrange for transfer as soon as this can be arranged. Will repeat ESR CRP and procalcitonin. Will continue her on her nicotine patch Suboxone and clonidine. Will continue other usual medications as prescribed following her discharge. The patient is a full code will note this in her record accordingly. Will discuss with case management today whether transfer back to [facility] can be arranged or whether the patient will need to go to a different long term facility for the remaining 6 weeks of her antibiotic therapy. I discussed with Dr. Calhoun today the possibility of transfer to their swing bed. Unfortunately they do not accept admissions to their swing bed on the weekends. Will call the swing bed supervisor mending tomorrow for bed availability and whether or not they are willing to accept the patient back for continued treatment. If she is unable to transfer back to [facility] would consider transfer to SNF for continued antibiotic therapy. Quality VTE Deep Vein Thrombosis/Pulmonary Embolism Present on Admission: No
--- NOTE | 2019-06-13 14:10 | CM.DPC ---
DCP senior software quality analyst IV-Abx planning Per MD, pt has been tolerating IV-Abx well and no behaviors noted or requests to leave AMA. called Dr. Link at [facility] to inquire about help with transferring pt back to [facility] Swing Bed for IV-Abx and he stated no medical need for pt to transfer to [facility] for follow up and suggested calling Dr. Calhoun at [facility]. spoke with Dr. Calhoun at [facility] and discussed pt situation and MD was willing to consider accepting pt if Swing Bed RN Manager Bilingual is able to accommodate pt due to staffing needs. TRUPTI called [facility] ([phone]) requesting to talk to Swing RN Sup and PEDIATRIC UROLOGIST stated their Swing RN Sup is currently on vacation and will not be back for a couple weeks and typically their manager quality improvement steps into the Sup role when RN is out on vacation and requested SW to call back tomorrow (Friday) to phone number [phone] to further discuss. PEDIATRIC UROLOGIST stated though that her understanding was that since pt took a long time to get to their facility from [facility] and left AMA due to wanting a cigarette then they would not accept pt back. SW stressed that pt has been cooperative with care and no behavior issues and her labs and cultures have come back stable that they should reconsider accepting her for IV-Abx, although the person to help make this decision is not available until Friday. Due to possibility of [facility] declining accepting pt back, need for backup plan of SNF for course of Abx. TRUPTI met bedside with pt and explained role and discussed need for backup plan if [facility] cannot accept. Pt calm and friendly and open to discussing options and needs. Pt confirms that her preference would be to stay here at [facility], but aware that lower level of care needed for insurance purposes. SW discussed SNF rehab and pt agreeable to SNF if needed and states that her Aunt and Uncle live here in [place] so preference would be [facility]. Pt aware that SNF would need to be contracted with [facility] or willing to do one time contract. Pt agreeable to other SNF referrals if needed around [facility]. TRUPTI called [facility] admissions Radha and discussed pt situation and need upfront and Radha willing to review and discuss with her administrators with plan of likely needing to complete bedside assessment with pt and yanet discussion due to her IVDU hx. Radha willing to do a [facility] if [facility] can [facility] pt. PASRR done in anticipation of possible SNF placement. Plan: SW to follow closely for further discussion with [facility] Flexographic Press Helper in the morning to see if they can accept pt back. SW to follow for [facility] review and bedside assessment of pt tomorrow Friday as well. Meri Thomason also contracted [facility] and referral may need to be made there as well. Pt's hx of IVDU a barrier to d/c planning. CASSI Barrett
[2019-06-13 14:52] LABS: Vancomycin Trough 12.5 ug/mL (10-20)
[2019-06-13 15:00] VITALS: O2SAT 98
[2019-06-13] MEDS: VANCOMYCIN TROUGH 1 REQUEST MISC (15:02)
--- NOTE | 2019-06-13 15:45 | PC.NURSE ---
Infection: Pt reporting stitch in arm holding her pic line was painful. Pic line dressing changed today and stich was removed, both ports flushed per protocol and both have brick blood return. Caps changed. Pt reporting lt upper thigh area where she had surgery is feeling firmer to her. Appears unchanged. Steri's intact, no redness or drainage seen. Dr. Hardy made aware. Pt has also been declining her lovenox and stool softner. Dr. Hardy was made aware of this as well. Pt is up indep in room and amb in room freq. Pt receiving IV Vanco per orders. Pt voiced no other concerns today. Cont w/poc.
[2019-06-13 18:21] VITALS: BP 129/76; PULSE 112; RESP 21; TEMP 36.4; O2SAT 100
[2019-06-13] MEDS: VANCOMYCIN 1,000 MG/200 ML PIGGYBACK 200 MG IV (21:39)
--- NOTE | 2019-06-13 22:47 | PC.NURSE ---
Evening Shift note- Patient alert and oriented and able to make needs known to staff. Patient pleasent, calm, and cooperative with care. patient independent in room. PRN PO Ativan given per patient request this evening with no S/S of ASE noted. Safety measures in place. Call luis and phone within reach. will continue to monitor.
[2019-06-13 23:15] VITALS: BP 111/71; PULSE 102; RESP 18; TEMP 36.8; O2SAT 100
[2019-06-13] MEDS: MELATONIN 3 MG TABLET PO (23:30)
[2019-06-14] VITALS (7 sets, daily range): BP systolic 109–116; BP diastolic 45–73; PULSE 85–104; RESP 15–18; TEMP 36.6–37.1; O2SAT 97–100
[2019-06-14] MEDS: VANCOMYCIN 1,000 MG/200 ML PIGGYBACK 200 MG IV (05:55)
[2019-06-14] MEDS: SUBOXONE 1.5 EACH SL ×2 (05:58→16:18)
[2019-06-14] MEDS: PANTOPRAZOLE 40 MG TABLET PO (06:00)
[2019-06-14] MEDS: LORazepam 1 MG TABLET PO ×2 (09:00→16:06)
[2019-06-14] MEDS: ASPIRIN EC 81 MG TABLET PO (09:00)
[2019-06-14] MEDS: ENOXAPARIN 40 MG/0.4 ML SYRINGE SUBCUT (09:01)
[2019-06-14] MEDS: ACETAMINOPHEN 325 MG TABLET 650 MG PO (09:01)
--- NOTE | 2019-06-14 10:46 | PM.DS.1 ---
History of Present Illness Chief complaint: STATES ENDOCARDITIS, NEEDS VANCOMYCIN Narrative: The patient is a 28-year-old female with a history of IV drug abuse, bipolar disease, new diagnosis of tricuspid valve endocarditis, MRSA bacteremia, septic emboli with cavitary lesions of the lung, septic left hip status post I&D, who was admitted to [facility] in [place] for evaluation of left hip pain. Patient's course was complicated but ultimately was found to have MRSA bacteremia. A transesophageal echocardiogram was obtained which showed a mobile echogenic structure involving the tricuspid valve. This was felt to be a vegetation. She had moderate tricuspid regurgitation. Her MRSA was susceptible to vancomycin. Infectious Disease was consulted and she was continued on IV Vanco. Her white count improved, she was hemodynamically stable. Patient was also found to have cavitary lung lesions on CT a. These were felt to be septic emboli and were improving on her prior chest x-ray. She complained of pain in the left hip and underwent a fluid aspiration of the hip or the cultures were positive for MRSA. Patient had an orthopedic surgery consult and had a washout of the left hip on June 05, 2019. Patient has a history of IV heroin and meth use. She last used meth and heroin about 1 week ago. The patient was also started on Suboxone 12 mg twice daily. The recommendation was for her to continue 6 weeks of IV antibiotics completing this on July 17. The patient was transferred to [facility] to their swing bed for ongoing antibiotic treatment. Patient got to [facility] apparently had an altercation with the nurse and left the hospital Against Medical Advice. The PICC line was pulled and the patient left the facility. She presented to [facility] Emergency Department for vancomycin treatment. Patient did receive a dose of Vanco with the plans for her to be transferred back to [facility]. Unfortunately there were no beds available for her. Attempts were made for her to be transferred back to [facility] however it was felt the would not be indicated. The patient is admitted to the hospital at this time awaiting placement for long-term IV antibiotic treatment for her endocarditis. The patient has not taken her Suboxone in several hours. She reports feeling sick, ill all over, she feels like she is withdrawing from opiates. She has had some nausea, she had an episode of vomiting last night, no hematemesis melena or bright red blood per rectum. Patient does report some bleeding from her rectum with a hard stool. She has no dysuria hematuria or pyuria she has had no fevers. Discharge Providers Date of admission: 06/11/19 11:06 Discharge Date: 06/14/19 Consults: 06/11/19 12:25 Consult to Dietitian, Adult Routine Comment: Reason For Exam: decreased appetite with infection process Discharge provider: Caleb Tavares MD Summary Discharge Diagnosis: 1. 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 History of IV drug use 3. Heroin dependence or abuse 4. Methamphetamine dependence or abuse 5. Nicotine dependence 6. History of MRSA of left hip 7. History of septic lung emboli secondary to MRSA endocarditis Hospital Course: The patient was restarted on her IV vancomycin dosed 1000 mg Q 8 hours. She is getting vancomycin via right arm PICC line placed 06/10/2019. 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 She has been afebrile, admit WBC 12.3, WBC 8.3 on 06/13/2019. She was continued on Suboxone and using nicotine patch. She has been cooperative with her care at [facility]. She is being transferred back to [facility] to continue treatment she had initial started there. Status at Discharge Cognitive/behavioral status at discharge: oriented Functional status at discharge: independent ambulation Exam Vital Signs (past 8 hours): - 06/14/19 04:00 06/14/19 07:41 06/14/19 08:47 Temperature 98.1 F 97.9 F Pulse Rate 92 H 93 H Respiratory Rate 18 15 Blood Pressure 111/65 114/68 Pulse Oximetry 98 98 97 Oxygen Delivery Method Room Air Oxygen Flow Rate 0 Objective Labs Result Diagrams: 06/13/19 05:40 06/13/19 05:40 Labs: Laboratory Results - last 24 hr 06/13/19 14:00 Vancomycin Trough 12.5 Discharge Plan Discharge Plan Patient Disposition: On License Of [facility] Other facility: [facility] Discharge Med Rec/Prescriptions Prescriptions: New acetaminophen 325 mg Tablet 650 mg PO Q6HR PRN (Reason: As Needed For Fever/Mild Pain) Qty: 30 RF: 0 nicotine 14 mg/24 hr Patch 24 Hour 21 mg topical DAILY Qty: 30 RF: 0 melatonin 3 mg Tablet 3 mg PO BEDTIME Qty: 30 RF: 0 aspirin 81 mg Tablet,Delayed Release (Dr/Ec) 81 mg PO DAILY Qty: 30 RF: 0 lorazepam 1 mg Tablet 1 mg PO Q4HR PRN (Reason: Anxiety) Qty: 30 RF: 0 enoxaparin [Lovenox] 40 mg/0.4 mL Syringe 40 mg subcut DAILY Qty: 30 RF: 0 sennosides [senna] 8.6 mg Tablet 17.2 mg PO BEDTIME Qty: 30 RF: 0 pantoprazole 40 mg Tablet,Delayed Release (Dr/Ec) 40 mg PO 0700 Qty: 30 RF: 0 Suboxone 1.5 tab sublingual 0600,1700 Qty: 90 RF: 0 vancomycin 1,000 mg recon soln See Rx Instructions .ROUTE .COMPLEX 42 Days RF: 0 Discharge Health Status Multidrug resistant organism: MRSA Provider Discharge Instructions Diet: Diet as Tolerated Liquid consistency: Normal/Thin Food texture: Regular Visit Report/Discharge Packet Instructions: Bacterial Endocarditis, Peripherally Inserted Central Catheter, Vancomycin Injection Discharge Data Attending Provider: Amie Hardy Admit Date/Time: 06/11/19 11:06 Quality VTE Deep Vein Thrombosis/Pulmonary Embolism Present on Admission: No
--- NOTE | 2019-06-14 10:53 | P.DS_ITS ---
History of Present Illness Chief complaint: STATES ENDOCARDITIS, NEEDS VANCOMYCIN Narrative: The patient is a 28-year-old female with a history of IV drug abuse, bipolar disease, new diagnosis of tricuspid valve endocarditis, MRSA bacteremia, septic emboli with cavitary lesions of the lung, septic left hip status post I&D, who was admitted to [facility] in [place] for evaluation of left hip pain. Patient's course was complicated but ultimately was found to have MRSA bacteremia. A transesophageal echocardiogram was obtained which showed a mobile echogenic structure involving the tricuspid valve. This was felt to be a vegetation. She had moderate tricuspid regurgitation. Her MRSA was susceptible to vancomycin. Infectious Disease was consulted and she was continued on IV Vanco. Her white count improved, she was hemodynamically stable. Patient was also found to have cavitary lung lesions on CT a. These were felt to be septic emboli and were improving on her prior chest x-ray. She complained of pain in the left hip and underwent a fluid aspiration of the hip or the cultures were positive for MRSA. Patient had an orthopedic surgery consult and had a washout of the left hip on June 05, 2019. Patient has a history of IV heroin and meth use. She last used meth and heroin about 1 week ago. The patient was also started on Suboxone 12 mg twice daily. The recommendation was for her to continue 6 weeks of IV antibiotics completing this on July 17. The patient was transferred to [facility] to their swing bed for ongoing antibiotic treatment. Patient got to [facility] apparently had an altercation with the nurse and left the hospital Against Medical Advice. The PICC line was pulled and the patient left the facility. She presented to [facility] Emergency Department for vancomycin treatment. Patient did receive a dose of Vanco with the plans for her to be transferred back to [facility]. Unfortunately there were no beds available for her. Attempts were made for her to be transferred back to [facility] however it was felt the would not be indicated. The patient is admitted to the hospital at this time awaiting placement for long-term IV antibiotic treatment for her endocarditis. The patient has not taken her Suboxone in several hours. She reports feeling sick, ill all over, she feels like she is withdrawing from opiates. She has had some nausea, she had an episode of vomiting last night, no hematemesis melena or bright red blood per rectum. Patient does report some bleeding from her rectum with a hard stool. She has no dysuria hematuria or pyuria she has had no fevers. Discharge Providers Date of admission: 06/11/19 11:06 Discharge Date: 06/14/19 Consults: 06/11/19 12:25 Consult to Dietitian, Adult Routine Comment: Reason For Exam: decreased appetite with infection process Discharge provider: Caleb Tavares MD Summary Discharge Diagnosis: 1. 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 History of IV drug use 3. Heroin dependence or abuse 4. Methamphetamine dependence or abuse 5. Nicotine dependence 6. History of MRSA of left hip 7. History of septic lung emboli secondary to MRSA endocarditis Hospital Course: The patient was restarted on her IV vancomycin dosed 1000 mg Q 8 hours. She is getting vancomycin via right arm PICC line placed 06/10/2019. 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 She has been afebrile, admit WBC 12.3, WBC 8.3 on 06/13/2019. She was continued on Suboxone and using nicotine patch. She has been cooperative with her care at [facility]. She is being transferred back to [facility] to continue treatment she had initial started there. Status at Discharge Cognitive/behavioral status at discharge: oriented Functional status at discharge: independent ambulation Exam Vital Signs (past 8 hours): - 06/14/19 04:00 06/14/19 07:41 06/14/19 08:47 Temperature 98.1 F 97.9 F Pulse Rate 92 H 93 H Respiratory Rate 18 15 Blood Pressure 111/65 114/68 Pulse Oximetry 98 98 97 Oxygen Delivery Method Room Air Oxygen Flow Rate 0 Objective Labs Result Diagrams: 06/13/19 05:40 06/13/19 05:40 Labs: Laboratory Results - last 24 hr 06/13/19 14:00 Vancomycin Trough 12.5 Discharge Plan [facility]charge [facility] Discharge Med Rec/Prescriptions Prescriptions: New acetaminophen 325 mg Tablet 650 mg PO Q6HR PRN (Reason: As Needed For Fever/Mild Pain) Qty: 30 RF: 0 nicotine 14 mg/24 hr Patch 24 Hour 21 mg topical DAILY Qty: 30 RF: 0 melatonin 3 mg Tablet 3 mg PO BEDTIME Qty: 30 RF: 0 aspirin 81 mg Tablet,Delayed Release (Dr/Ec) 81 mg PO DAILY Qty: 30 RF: 0 lorazepam 1 mg Tablet 1 mg PO Q4HR PRN (Reason: Anxiety) Qty: 30 RF: 0 enoxaparin [Lovenox] 40 mg/0.4 mL Syringe 40 mg subcut DAILY Qty: 30 RF: 0 sennosides [senna] 8.6 mg Tablet 17.2 mg PO BEDTIME Qty: 30 RF: 0 pantoprazole 40 mg Tablet,Delayed Release (Dr/Ec) 40 mg PO 0700 Qty: 30 RF: 0 Suboxone 1.5 tab sublingual 0600,1700 Qty: 90 RF: 0 vancomycin 1,000 mg recon soln See Rx Instructions .ROUTE .COMPLEX 42 Days RF: 0 Discharge Health Status Multidrug resistant organism: MRSA Provider Discharge Instructions Diet: Diet as Tolerated Liquid consistency: Normal/Thin Food texture: Regular Visit Report/Discharge Packet Instructions: Bacterial Endocarditis, Peripherally Inserted Central Catheter, Vancomycin Injection Discharge Data Attending Provider: Amie Hardy Admit Date/Time: 06/11/19 11:06 Quality VTE Deep Vein Thrombosis/Pulmonary Embolism Present on Admission: No
--- NOTE | 2019-06-14 15:11 | CM.DPC ---
DCP/continued: Reviewed chart. Received notification from Dr. Tavares that patient medically stable to return to SNF level of care for continued IV abx. LAB SUPPORT TECH reviewed all notes from over the weekend. Apparently, patient was at [facility] in swing bed. Patient left after finding out she could not smoke. LAB SUPPORT TECH placed call to Nathalia at [facility] re: possible acceptance today. Nathalia agreeable to review for potential re-admit. However, behavioral contract needs to be signed by patient. Patient now has 21mg nicotine patch. Clinical information faxed to [facility] and they will accept this patient back. Met with patient explained LAB SUPPORT TECH role. Patient reports that she would prefer to stay here but is agreeable to return. Patient made aware that these arrangements for 6wks of IV abx were made for her safety and authorized by her insurance. Placed call to Etta at [facility], she is in agreement with plan and will update contract since it had . [facility] requesting that patient come via non-urgent BLS transport. Medical necessity form completed and signed by MD. Patient requiring non-urgent BLS transport secondary to safety and IVDU. Asked SHIKHA/Anne to arrange transport. RN given number to call nursing report. PASRR faxed. P: [facility] ([facility]) arranged bed for continued IV abx. Insurance company notified. CASSI Brown
--- NOTE | 2019-06-14 16:36 | PC.NURSE ---
Evening Shift Note- Patientn transfered to [facility] in [facility] for continued IV therapy. Patient transfer via EMS. Patient left via strecher with EMS at 1620 with all personal beloning. rechecked patients room for personal belongings. [facility] info packet given to EMS. Attempted to call report to [facility]. [facility] nurse with [facility]iet at time of call, left my name and number for nurse to call me back for report.
== END 2019-06-14 16:20 | disposition short-term general hospital (02) | DRG 193 ==
LOC: ED 06-11 11:01 → AC 06-11 11:07
PROVIDERS: Emergency Medicine; Admitting Provider Internal Medicine; Emergency Provider Emergency Medicine; Visit Provider Internal Medicine
DX: I33.9 Acute and subacute endocarditis, unspecified (principal); B95.62 Methicillin resistant Staphylococcus aureus infection as the cause of diseases classified elsewhere; R78.81 Bacteremia; I26.90 Septic pulmonary embolism without acute cor pulmonale; F31.9 Bipolar disorder, unspecified; F11.23 Opioid dependence with withdrawal; F17.210 Nicotine dependence, cigarettes, uncomplicated
CPT/HCPCS: 36415; 36569; 36592; 80048; 80202; 80305; 81003; 81025; 83605; 84145; 85025; 85651; 86140; 87040; 93005; 93041; 96365; 96366; 96375; 99284; 99285; 99406; J1642; J1650; J1885; J2405; J3370

== ENCOUNTER 2019-08-11 20:38 | Emergency (ER) | payer OTHER, MEDICAID, SELFPAY ==
[2019-06-11 12:11] VITALS: BMI 28.0
[2019-08-11 20:46] VITALS: BP 130/86; PULSE 110; RESP 20; TEMP 36.6; O2SAT 98
--- NOTE | 2019-08-11 20:58 | DI.RAD.S_ITS ---
PROCEDURE: XR CHEST 1V INDICATIONS: chest pain TECHNIQUE: One view of the chest was acquired. COMPARISON: [facility], , XR CHEST FOR PICC 1V, 06/10/2019, 22:33. FINDINGS: Surgical changes and devices: None. Lungs and pleura: Lungs are clear. No pleural effusions or pneumothorax. Mediastinum: Mediastinal contours appear normal. Heart size is normal. Bones and chest wall: No suspicious bony lesions. Overlying soft tissues appear unremarkable. IMPRESSION: No acute disease. Dictated by: Jayson Hoff M.D. on 08/11/2019 at 21:46 Approved by: Jayson Hoff M.D. on 08/11/2019 at 21:47
[2019-08-11 21:17] LABS: INR 1.1 (0.9-1.3); Prothrombin Time 12.3 SECONDS (10.1-12.7)
[2019-08-11 21:19] LABS: PTT Partial Thromboplastin Tim 33 SECONDS (26.4-36.2)
[2019-08-11 21:20] LABS: Add Manual Diff / Slide Review NO; Basophils Absolute Auto 0 /uL (0-100); Basophils Percent Auto 0.4 % (0-2); Eosinophils Absolute Auto 100 /uL (0-450); Eosinophils Percent Auto 1.5 % (2-4); Hematocrit 34.9 % (36-46); Hemoglobin 12.1 g/dL (12.0-16.0); Lymphocytes Absolute Auto 1600 /uL (1100-4500); Lymphocytes Percent Auto 23.8 % (25-40); Mean Corpuscular HGB Conc 34.6 % (30-36); Mean Corpuscular Hemoglobin 28.8 PG (26-34); Mean Corpuscular Volume 83.2 fL (80-100); Monocytes Absolute Auto 400 /uL (0-900); Monocytes Percent Auto 5.7 % (3-14); Neutrophils Absolute Auto 4600 /uL (1500-7000); Neutrophils Percent Auto 68.6 % (50-75); Platelet Count 310 X10^3/uL (150-400); Red Blood Cell Count 4.19 X10^6/uL (4.0-5.2); Red Cell Distribution Width 15.5 % (11.6-14.8); White Blood Cell Count 6.7 X10^3/uL (4.5-11.0)
[2019-08-11 21:26] LABS: Alanine Aminotransferase 10 IU/L (9-52); Albumin 4.5 g/dL (3.5-5.0); Albumin Globulin Ratio 1.1 (1.0-2.8); Alkaline Phosphatase 102 U/L (38-126); Aspartate Aminotransferase 23 IU/L (14-36); BUN Creatinine Ratio 21.3 (6-22); Bilirubin Total 0.2 mg/dL (0.2-1.3); Blood Urea Nitrogen 17 mg/dL (7-17); Calcium 9.5 mg/dL (8.4-10.2); Carbon Dioxide 26 mmol/L (22-32); Chloride 106 mmol/L (98-107); Creatine Kinase 67 U/L (30-135); Estimated Glomerular Filt Rate > 60.0 mL/min (>60); Globulin 4.1 g/dL (1.7-4.1); Glucose 113 mg/dL (70-100); HEMOLYSIS < 15 (0-50); Lipase 53 U/L (23-300); Potassium 3.8 mmol/L (3.4-5.1); Sodium 142 mmol/L (137-145); Total Protein 8.6 g/dL (6.3-8.2)
[2019-08-11 21:37] LABS: Troponin I < 0.012 ng/mL (0.01-0.034)
[2019-08-11 22:02] LABS: D Dimer 399 ng/mL (<230)
[2019-08-11 22:05] VITALS: BP 101/72; PULSE 71; RESP 16; O2SAT 94
--- NOTE | 2019-08-11 22:44 | ED_ITS ---
HPI - Chest Pain General Chief Complaint: Chest Pain Stated Complaint: feels like her heart is exploding Time Seen by Provider: 08/11/19 22:44 Source: patient Mode of arrival: Ambulatory Limitations: no limitations History of Present Illness HPI narrative: The patient complains of right-sided chest pain for 2 weeks. The pain exacerbates at times, has now calmed. She is a smoker. She coughs periodically. She has no fever chills. Cough is nonproductive. She denies hemoptysis. She tells me is chronic back pain, occasionally neurogenic pain. She is not on management for chronic pain. Additionally she takes medications for anxiety. She was resting well when I entered the room, apparently the pain was much worse earlier. She has no chronic respiratory or cardiac problems. She is not on control pills. She has no leg pain, and no recent travel. She has no history of DVT or PE. She is not having fever or chills with the cough. Related Data Previous Rx's Medication Instructions Recorded Suboxone 1.5 tab SUBLINGUAL 0600,1700 #90 06/14/19 tab acetaminophen 650 mg PO Q6HR PRN #30 tab 06/14/19 aspirin 81 mg PO DAILY #30 tab 06/14/19 enoxaparin [Lovenox] 40 mg SUBCUT DAILY #30 ml 06/14/19 lorazepam 1 mg PO Q4HR PRN #30 tab 06/14/19 melatonin 3 mg PO BEDTIME #30 tab 06/14/19 nicotine 21 mg TOPICAL DAILY #30 ea 06/14/19 pantoprazole 40 mg PO 0700 #30 tab 06/14/19 sennosides [senna] 17.2 mg PO BEDTIME #30 tab 06/14/19 vancomycin See Rx Instructions .ROUTE 06/14/19 .COMPLEX 42 Days each doxycycline hyclate 100 mg PO BID 10 Days #20 tab 08/12/19 Allergies Allergy/AdvReac Type Severity Reaction Status Date / Time No Known Drug Allergies Allergy Verified 06/10/19 19:28 Review of Systems Review of Systems ROS Unobtainable: All systems reviewed & are unremarkable except as noted in HPI and below Constitutional Constitutional: Denies chills, Denies fever(s), Denies lethargy and Denies weakness Eyes Eyes: Denies change in vision, Denies eye discharge, Denies irritation and Denies loss of vision ENT Ears, Nose, Mouth, and Throat: Denies change in voice, Denies neck pain and D enies sore throat Cardiovascular Cardiovascular: Reports as per HPI, Reports chest pain, Denies syncope, Denies rapid heart rate, Denies pedal edema and Denies irregular heart rhythm Respiratory Respiratory: Reports pain with cough and Denies wheezing Gastrointestinal Gastrointestinal: Denies abdominal pain, Denies change in bowel habits, Denies diarrhea, Denies nausea and Denies vomiting Genitourinary Genitourinary: Denies dysuria Comments: Not Musculoskeletal Musculoskeletal: Denies back pain and Denies neck pain Integumentary/Breasts Skin/Breast: Denies pruritus, Denies erythema, Denies rash and Denies wounds Neurologic Neurologic: Denies confusion, Denies syncope, Denies loss of vision and Denies weakness Psychiatric Psychiatric: Denies anxiety, Denies confusion and Denies depression Allergic/Immunologic Allergic/Immunologic: Denies wheezing PFSH Medical History Abscess of left leg (Acute) Bipolar affective disorder (Acute) Endocarditis (Acute) IV drug abuse (Acute) Family History (Updated 06/11/19 @ 13:04 by Amie Hardy MD) Mother Methamphetamine addiction Social History household members: friend(s) Smoking Status: Current every day smoker alcohol intake: former substance use type: marijuana, heroin and methamphetamine Social History household members: friend(s) Smoking Status: Current every day smoker alcohol intake: former substance use type: marijuana, heroin and methamphetamine Exam Initial Vital Signs Initial Vital Signs: Vital Signs Temperature 98 F 08/11/19 20:46 Pulse Rate 110 H 08/11/19 20:46 Respiratory Rate 20 08/11/19 20:46 Blood Pressure 130/86 08/11/19 20:46 Pulse Oximetry 98 08/11/19 20:46 Const General: cooperative and well developed Nutritional Appearance: well nourished Orientation: alert, awake, oriented x3 and not confused [facility] Head: normocephalic and atraumatic Nose: external nose normal Mouth: oral mucosae normal and moist mucous membranes Teeth and gingiva: dentition normal Throat: tonsils normal and uvula midline Eyes General: appearance normal, both eyes and all related structures Eyelids: eyelids normal Conjunctivae: conjunctivae normal Sclera: sclerae normal Pupils: PERRL EOM: EOM intact bilaterally Neck Neck: No lymphadenopathy and No JVD Chest Chest: normal inspection of the chest and tenderness (Right costal margin) Resp Effort & Inspection: normal respiratory effort and able to speak in complete sentences Auscultation: clear to auscultation bilaterally, no rales, no rhonchi and no wheezes Cardio Rate: regular rate Rhythm: regular rhythm Heart Sounds: no click, no gallops, no murmurs and no rubs Pulses: normal peripheral pulses GI Inspection: non-distended Palpation: soft, no hepatosplenomegaly, No guarding, No pulsatile mass and No tender Auscultation: normal bowel sounds Back/Spine/Pelvis Back: No CVA tenderness Skin General: no rashes or lesions noted, No jaundice and No petechiae Neuro General: alert, oriented x3, gait normal and no focal motor deficits Speech: speech normal Extrem General: full ROM, no clubbing, cyanosis or edema, no pedal edema and no calf tenderness Course Course Course Narrative: On exam the patient has costochondral chest wall pain on the right side. CTA of the chest was done to rule out PE. There is no evidence of PE. Bronchial wall thickening is noted on the CT. She was started on doxycycline for bronchitis. She is advised to use Advil for the chest wall pain. Orders Ordered: ED Orders 08/11/19 20:58 XR chest 1V Stat EKG-12 Lead Stat 08/11/19 21:03 Complete Blood Count AUTO DIFF Stat Comprehensive Metabolic Panel Stat DD [D Dimer] Stat Lipase Stat Partial Thromboplastin Time Stat Prothrombin Time INR Stat Troponin & CK Cardiac Panel Stat 08/11/19 22:51 CT angio chest PE protocol Stat Discontinued Medications Doxycycline Hyclate (Vibramycin) 100 mg PO NOW ONE Stop: 08/12/19 01:09 Ketorolac Tromethamine (Toradol) 30 mg IV NOW ONE Stop: 08/11/19 22:53 Last Admin: 08/11/19 23:14 Dose: Not Given Documented by: DAVIDA Ketorolac Tromethamine (Toradol) 30 mg IM NOW ONE Stop: 08/11/19 23:14 Last Admin: 08/11/19 23:16 Dose: 30 mg Documented by: DAVIDA Vital Signs Vital signs: Vital Signs - 8 hr 08/11/19 20:46 08/11/19 22:05 08/12/19 01:10 Temperature 98 F Pulse Rate 110 H 71 64 Respiratory Rate 20 16 20 Blood Pressure 130/86 Blood Pressure [Right Arm] 101/72 102/65 Pulse Oximetry 98 94 96 MDM - Chest Pain Lab Data Result diagrams: 08/11/19 21:03 08/11/19 21:03 Labs: Lab Results 08/11/19 08/11/19 08/11/19 Range/Units 21:03 21:03 21:03 WBC 6.7 (4.5-11.0) X10^3/uL RBC 4.19 (4.0-5.2) X10^6/uL Hgb 12.1 (12.0-16.0) g/dL Hct 34.9 L (36-46) % MCV 83.2 (80-100) fL MCH 28.8 (26-34) PG MCHC 34.6 (30-36) % RDW 15.5 H (11.6-14.8) % Plt Count 310 (150-400) X10^3/uL Neut % (Auto) 68.6 (50-75) % Lymph % (Auto) 23.8 L (25-40) % [place] % (Auto) 5.7 (3-14) % Eos % (Auto) 1.5 L (2-4) % Baso % (Auto) 0.4 (0-2) % Neut # (Auto) 4600 (5002-5785) /uL Lymph # (Auto) 1600 (0404-4811) /uL [place] # (Auto) 400 (0-900) /uL Eos # (Auto) 100 (0-450) /uL Baso # (Auto) 0 (0-100) /uL PT 12.3 (10.1-12.7) SECONDS INR 1.1 (0.9-1.3) APTT 33 (26.4-36.2) SECONDS D-Dimer (<230) ng/mL Sodium 142 (137-145) mmol/L Potassium 3.8 (3.4-5.1) mmol/L Chloride 106 (98-107) mmol/L Carbon Dioxide 26 (22-32) mmol/L BUN 17 (7-17) mg/dL Creatinine 0.80 (0.52-1.04) mg/dL Estimated GFR > 60.0 (>60) mL/min BUN/Creatinine Ratio 21.3 (6-22) Glucose 113 H (70-100) mg/dL Calcium 9.5 (8.4-10.2) mg/dL Total Bilirubin 0.2 (0.2-1.3) mg/dL AST 23 (14-36) IU/L ALT 10 (9-52) IU/L Alkaline Phosphatase 102 (38-126) U/L Total Creatine Kinase 67 (30-135) U/L CK-MB (CK-2) TNP CK-MB (CK-2) Rel Index TNP Troponin I < 0.012 (0.01-0.034) ng/mL Total Protein 8.6 H (6.3-8.2) g/dL Albumin 4.5 (3.5-5.0) g/dL Globulin 4.1 (1.7-4.1) g/dL Albumin/Globulin Ratio 1.1 (1.0-2.8) Lipase 53 (23-300) U/L 08/11/19 Range/Units 21:03 WBC (4.5-11.0) X10^3/uL RBC (4.0-5.2) X10^6/uL Hgb (12.0-16.0) g/dL Hct (36-46) % MCV (80-100) fL MCH (26-34) PG MCHC (30-36) % RDW (11.6-14.8) % Plt Count (150-400) X10^3/uL Neut % (Auto) (50-75) % Lymph % (Auto) (25-40) % [place] % (Auto) (3-14) % Eos % (Auto) (2-4) % Baso % (Auto) (0-2) % Neut # (Auto) (0204-2072) /uL Lymph # (Auto) (6344-8017) /uL [place] # (Auto) (0-900) /uL Eos # (Auto) (0-450) /uL Baso # (Auto) (0-100) /uL PT (10.1-12.7) SECONDS INR (0.9-1.3) APTT (26.4-36.2) SECONDS D-Dimer 399 H (<230) ng/mL Sodium (137-145) mmol/L Potassium (3.4-5.1) mmol/L Chloride (98-107) mmol/L Carbon Dioxide (22-32) mmol/L BUN (7-17) mg/dL Creatinine (0.52-1.04) mg/dL Estimated GFR (>60) mL/min BUN/Creatinine Ratio (6-22) Glucose (70-100) mg/dL Calcium (8.4-10.2) mg/dL Total Bilirubin (0.2-1.3) mg/dL AST (14-36) IU/L ALT (9-52) IU/L Alkaline Phosphatase (38-126) U/L Total Creatine Kinase (30-135) U/L CK-MB (CK-2) CK-MB (CK-2) Rel Index Troponin I (0.01-0.034) ng/mL Total Protein (6.3-8.2) g/dL Albumin (3.5-5.0) g/dL Globulin (1.7-4.1) g/dL Albumin/Globulin Ratio (1.0-2.8) Lipase (23-300) U/L Imaging Data Chest x-ray: Radiologist's impression: 105 Michael Tyson MD Find Patient Imaging - Venus Rodriguez 28 F 1990 ACTIVITY DATE EXAM STATUS AUTHOR 08/11/19 20:58 Signed [facility] [address] XRay Report Signed Patient: Venus Rodriguez [facility]#: [id number] : 1990Acct:[id number] Age/Sex: 28 / FDate of Service: 08/11/19 Loc: ED Accession Number: [id number] Procedure: XR chest 1V Ordering Provider: Michael Tyson MD PROCEDURE: XR CHEST 1V INDICATIONS: chest pain TECHNIQUE: One view of the chest was acquired. COMPARISON: [facility], , XR CHEST FOR PICC 1V, 06/10/2019, 22:33. FINDINGS: Surgical changes and devices: None. Lungs and pleura: Lungs are clear. No pleural effusions or pneumothorax. Mediastinum: Mediastinal contours appear normal. Heart size is normal. Bones and chest wall: No suspicious bony lesions. Overlying soft tissues appear unremarkable. IMPRESSION: No acute disease. Dictated by: Jayson Hoff M.D. on 08/11/2019 at 21:46 Approved by: Jayson Hoff M.D. on 08/11/2019 at 21:47 CTA chest:: Radiologist's impression: No evidence of PE. Mild diffuse bronchial wall thickening possibly associated with infectious or inflammatory bronchitis. ECG Data Attestation: I personally reviewed and interpreted this ECG as follows: (Sinus tachycardia rate 118 beats per minute. Nonspecific ST T wave changes. No ec topy. Normal intervals.) Discharge Plan Departure Patient Disposition: Home Clinical Impression: Anterior chest wall pain Acute bronchitis Qualifiers: Bronchitis organism: unspecified organism Qualified Code(s): J20.9 - Acute bronchitis, unspecified Instructions: Acute Bronchitis Activity Restrictions/Additional Instructions: Doxycycline 1 tablet 2 times daily for 10 days. Advil 3 tablets every 6 hours as needed for chest wall pain. Follow-up with her doctor in 2 weeks for recheck. Return here if symptoms increase. Prescriptions: New doxycycline hyclate 100 mg tablet 100 mg PO BID 10 Days Qty: 20 RF: 0 No Action acetaminophen 325 mg Tablet 650 mg PO Q6HR PRN (Reason: As Needed For Fever/Mild Pain) Qty: 30 RF: 0 nicotine 14 mg/24 hr Patch 24 Hour 21 mg topical DAILY Qty: 30 RF: 0 melatonin 3 mg Tablet 3 mg PO BEDTIME Qty: 30 RF: 0 aspirin 81 mg Tablet,Delayed Release (Dr/Ec) 81 mg PO DAILY Qty: 30 RF: 0 lorazepam 1 mg Tablet 1 mg PO Q4HR PRN (Reason: Anxiety) Qty: 30 RF: 0 enoxaparin [Lovenox] 40 mg/0.4 mL Syringe 40 mg subcut DAILY Qty: 30 RF: 0 sennosides [senna] 8.6 mg Tablet 17.2 mg PO BEDTIME Qty: 30 RF: 0 pantoprazole 40 mg Tablet,Delayed Release (Dr/Ec) 40 mg PO 0700 Qty: 30 RF: 0 Suboxone 1.5 tab sublingual 0600,1700 Qty: 90 RF: 0 vancomycin 1,000 mg recon soln See Rx Instructions .ROUTE .COMPLEX 42 Days RF: 0
--- NOTE | 2019-08-11 22:51 | DI.CT.S_ITS ---
PROCEDURE: CT ANGIO CHEST PE PROTOCOL INDICATIONS: Right chest pain. Elevated d dimer. TECHNIQUE: After the administration of intravenous contrast, 2 mm thick sections acquired from the pulmonary apices to the posterior costophrenic angles. 3-dimensional maximum intensity projection (MIP) coronal and sagittal reformats were then acquired through the thorax. For radiation dose reduction, the following was used: automated exposure control, adjustment of mA and/or kV according to patient size. COMPARISON: [facility], CR, XR CHEST FOR PICC 1V, 06/10/2019, 22:33. [facility], CR, XR CHEST 1V, 08/11/2019, 21:00. FINDINGS: Image quality: Excellent. Pulmonary arteries: Pulmonary arteries are normal in size, and demonstrate no intraluminal filling defects to suggest central pulmonary embolism. Lungs and pleura: There are irregular subpleural nodules, scars and atelectasis. No pleural effusions or pneumothorax. There is bronchial wall thickening bilaterally. Central and peripheral airways are patent. Mediastinum: Heart size is normal, without pericardial effusion. No mediastinal or hilar adenopathy. Thoracic aorta is normal in caliber and enhancement. Esophagus is normal in caliber, without hiatal hernia. Bones and chest wall: No suspicious bony lesions. Ribs and thoracic spine appear intact throughout. Thyroid gland is normal. No axillary or supraclavicular adenopathy. Abdomen: Visualized upper abdominal solid organs appear normal in the early arterial phase of enhancement. IMPRESSION: 1. No evidence for pulmonary embolism. 2. Irregular subpleural nodules, scars and atelectasis. 3. Bronchial wall thickening suggesting bronchitis. No significant discrepancy with the comber tender radiology preliminary report. Dictated by: Mel Baig M.D. on 08/12/2019 at 7:28 Approved by: Mel Baig M.D. on 08/12/2019 at 7:33
[2019-08-11] MEDS: KETOROLAC 60 MG/2 ML VIAL 30 MG IM (23:16)
[2019-08-12 01:10] VITALS: BP 102/65; PULSE 64; RESP 20; O2SAT 96
[2019-08-12] MEDS: DOXYCYCLINE HYCLATE 100 MG TABLET PO (01:18)
== END 2019-08-12 01:27 | disposition home or self-care (01) ==
PROVIDERS: Emergency Provider Emergency Medicine
DX: R07.89 Other chest pain (principal); J20.9 Acute bronchitis, unspecified; R00.0 Tachycardia, unspecified
CPT/HCPCS: 36415; 71045; 71275; 80053; 82550; 83690; 84484; 85025; 85379; 85610; 85730; 93005; 96372; 99283; 99285; J1885; Q9967

== ENCOUNTER 2024-04-14 13:26 | Emergency (ER) | payer OTHER, MEDICAID, SELFPAY ==
[2019-06-11 12:11] VITALS: BMI 28.0
[2024-04-14] VITALS (18 sets, daily range): BP systolic 133–156; BP diastolic 71–95; PULSE 53–109; RESP 15–35; TEMP 36.6; O2SAT 93–100; BMI 35.4
--- NOTE | 2024-04-14 13:43 | DI.RAD.S_ITS ---
PROCEDURE: XR CHEST 1V INDICATIONS: fells ill TECHNIQUE: One view of the chest was acquired. COMPARISON: [facility], [place], XR CHEST 1V, 08/11/2019, 21:00. [facility], CR, XR CHEST FOR PICC 1V, 06/10/2019, 22:33. FINDINGS: Surgical changes and devices: None. Lungs and pleura: Linear atelectasis versus scarring within the left mid to lower lung zone. Lungs are otherwise clear. No pleural effusions or pneumothorax. Mediastinum: Mediastinal contours appear normal. Heart size is normal. Bones and chest wall: No suspicious bony lesions. Overlying soft tissues appear unremarkable. IMPRESSION: No acute cardiopulmonary abnormality is seen. Dictated by: Danish Tillman M.D. on 04/14/2024 at 14:09 Approved by: Danish Tillman M.D. on 04/14/2024 at 14:10
--- NOTE | 2024-04-14 14:01 | PC.NURSE ---
Pt unable to articulate whyh she came to the hospital. When asked pt will give variouse vague complaints and interchange them. Pt did not chest pain on the R side at one point leading to CP triage entry.
[2024-04-14 14:24] LABS: Add Manual Diff / Slide Review NO; Basophils Absolute Auto 100 /uL (0-100); Basophils Percent Auto 0.6 % (0-2); Eosinophils Absolute Auto 200 /uL (0-450); Hematocrit 38.3 % (36-46); Hemoglobin 12.9 g/dL (12.0-16.0); Lymphocytes Absolute Auto 2800 /uL (1100-4500); Lymphocytes Percent Auto 31.1 % (25-40); Mean Corpuscular HGB Conc 33.6 % (30-36); Mean Corpuscular Volume 86.4 fL (80-100); Monocytes Absolute Auto 800 /uL (0-900); Monocytes Percent Auto 8.9 % (3-14); Neutrophils Absolute Auto 5100 /uL (1500-7000); Neutrophils Percent Auto 57.4 % (50-75); Platelet Count 272 X10^3/uL (150-400); Red Blood Cell Count 4.44 X10^6/uL (4.0-5.2); Red Cell Distribution Width 15.1 % (11.6-14.8); White Blood Cell Count 8.9 X10^3/uL (4.5-11.0)
[2024-04-14 14:37] LABS: Acetaminophen < 10 ug/mL (10-30); Alanine Aminotransferase 27 IU/L (<35); Albumin 4.8 g/dL (3.5-5.0); Albumin Globulin Ratio 1.3 (1.0-2.8); Alkaline Phosphatase 135 U/L (38-126); Aspartate Aminotransferase 33 IU/L (14-36); BUN Creatinine Ratio 7.3 (6-22); Bilirubin Total 0.8 mg/dL (0.2-1.3); Blood Urea Nitrogen 4 mg/dL (7-17); Calcium 9.6 mg/dL (8.4-10.2); Carbon Dioxide 25 mmol/L (22-32); Chloride 106 mmol/L (98-107); Estimated Glomerular Filt Rate > 60 mL/min (>60); Ethanol (ETOH) < 10 mg/dL; Globulin 3.7 g/dL (1.7-4.1); Glucose 108 mg/dL (70-100); HEMOLYSIS < 15 (0-50); Lactate (Lactic Acid) 1.3 mmol/L (0.7-2.1); Lipase 59 U/L (23-300); Potassium 3.1 mmol/L (3.4-5.1); Salicylate < 1.0 mg/dL (<20); Sodium 140 mmol/L (137-145); Total Protein 8.5 g/dL (6.3-8.2)
[2024-04-14] MEDS: SODIUM CHLORIDE 0.9% 1,000 ML 1000 ML IV (14:37)
[2024-04-14 14:53] LABS: Procalcitonin 0.055 ng/mL (<0.5)
--- NOTE | 2024-04-14 15:30 | PC.NURSE ---
Pt stating that she needs to urinate and is unable to use the placed external catheter. Pt straight cathed for urine. CARLOS Akins advised.
[2024-04-14 16:33] LABS: UR Morphine/Opiate cutoff 300 Negative (Negative); Ur Creatinine Normal (Normal); Ur Specific Gravity Normal (Normal); Urine Amphetamines Positive (Negative); Urine Cocaine Negative (Negative); Urine Tetrahydrocannabinol Positive (Negative); Urine pH Normal (Normal)
[2024-04-14 16:34] LABS: Urine Barbiturates Negative (Negative); Urine Benzodiazepines Negative (Negative); Urine MDMA Negative (Negative); Urine Methadone Positive (Negative); Urine Methamphetamines Positive (Negative); Urine Oxycodone Negative (Negative); Urine Phencyclidine Negative (Negative); Urine Tricyclic Antidepressant Negative (Negative)
--- NOTE | 2024-04-14 17:48 | ED_ITS ---
HPI - Chest Pain General Chief Complaint: Chest Pain Stated Complaint: General Illness Time Seen by Provider: 04/14/24 13:40 Source: EMS Mode of arrival: EMS Limitations: no limitations History of Present Illness HPI narrative: 33-year-old female with history of opiate use for many years she states, states that she receives methadone from an [facility], had some chest discomfort and nausea and vomiting earlier today, no black or red color to emesis, states that she follows up for methadone treatment through [facility]. She denies painful urination. She denies recent cough, denies shortness of breath. Related Data Previous Rx's Medication Instructions Recorded Suboxone 1.5 tab sublingual 0600,1700 #90 06/14/19 tabs acetaminophen 325 mg tablet 650 mg (2 x 325 mg) PO Q6HR PRN As 06/14/19 Needed For Fever/Mild Pain #30 tabs aspirin 81 mg tablet,delayed 81 mg PO DAILY #30 tabs 06/14/19 release enoxaparin 40 mg/0.4 mL 40 mg (0.4 mL) SUBCUT DAILY #30 mL 06/14/19 subcutaneous syringe (Lovenox) lorazepam 1 mg tablet 1 mg PO Q4HR PRN Anxiety #30 tabs 06/14/19 melatonin 3 mg tablet 3 mg PO BEDTIME #30 tabs 06/14/19 nicotine 14 mg/24 hr daily 21 mg topical DAILY #30 ea 06/14/19 transdermal patch pantoprazole 40 mg tablet,delayed 40 mg PO 0700 #30 tabs 06/14/19 release sennosides 8.6 mg tablet (senna) 17.2 mg (2 x 8.6 mg) PO BEDTIME 06/14/19 #30 tabs Allergies Allergy/AdvReac Type Severity Reaction Status Date / Time No Known Drug Allergies Allergy Verified 06/10/19 19:28 Review of Systems Review of Systems Narrative: as per HPI Patient History Medical History Bipolar affective disorder Abscess of left leg Endocarditis IV drug abuse Family History (Updated 06/11/19 @ 13:04 by Amie Hardy MD) Mother Methamphetamine addiction Social History household members: friend(s) Smoking Status: Current every day smoker alcohol intake: former substance use type: marijuana, heroin and methamphetamine Smoking Status: Current every day smoker alcohol intake frequency: other Substance Use Type: marijuana, heroin and methamphetamine Exam Narrative Exam Narrative: GENERAL: Well-developed patient, in mild distress. Tearful HEAD: Atraumatic. Normocephalic. EYES: Pupils equal round and reactive. Extraocular motions intact. No scleral icterus. No injection or drainage. ENT: Poor dentition generalized. Nose without bleeding, purulent drainage. Throat without erythema, tonsillar hypertrophy or exudate. Airway patent. NECK: Trachea midline. Non tender CARDIOVASCULAR: Regular rate and rhythm without murmurs, gallops, or rubs. RESPIRATORY: Clear to auscultation. Breath sounds equal bilaterally. No wheezes, rales, or rhonchi. GASTROINTESTINAL: Abdomen soft, non-tender, nondistended. EXTREMITIES: No edema or joint tenderness. BACK: Nontender without deformity or crepitance. No flank tenderness. NEURO: AOx3. SKIN: No rash or erythema of visible areas Initial Vital Signs Initial Vital Signs: Vital Signs Temperature 97.8 F 04/14/24 13:31 Pulse Rate 53 L 04/14/24 13:31 Respiratory Rate 16 04/14/24 13:31 Blood Pressure 146/82 H 04/14/24 13:31 Pulse Oximetry 96 04/14/24 13:31 Oxygen Delivery Method Room Air 04/14/24 13:31 Course Orders Ordered: Discontinued Medications Clonidine HCl (Clonidine 0.1 Mg Tablet) 0.1 mg PO NOW ONE Stop: 04/14/24 18:56 Last Admin: 04/14/24 19:14 Dose: 0.1 mg Documented By: MALKA Sodium Chloride (Normal Saline 0.9%) 1,000 mls @ 1,000 mls/hr IV BOLUS ONE Stop: 04/14/24 14:42 Last Infusion: 04/14/24 18:13 Dose: Infused Documented By: Admin: 04/14/24 14:37 Dose: 1,000 mls/hr Documented By: YONIS Naloxone HCl (Naloxone 0.4 Mg/Ml Vial) 0.2 mg IV Q2MIN PRN PRN Reason: Opiate Reversal Ondansetron HCl (Ondansetron 4 Mg Odt Prepack) 1 bottle MISC DIRECTED ONE Stop: 04/14/24 19:24 Potassium Chloride (Potassium Chloride 20 Meq/15 Ml Udc) 40 meq PO NOW ONE Stop: 04/14/24 17:51 Last Admin: 04/14/24 18:18 Dose: 40 meq Documented By: MALKA Vital Signs Vital signs: Vital Signs - 8 hr 04/14/24 14:30 04/14/24 14:35 04/14/24 14:35 Pulse Rate 54 L 73 Respiratory Rate 27 H 21 Blood Pressure 149/86 H Pulse Oximetry 95 100 Oxygen Delivery Method 04/14/24 15:00 04/14/24 15:00 04/14/24 15:30 Pulse Rate 63 101 H Respiratory Rate 15 24 Blood Pressure 151/89 H Pulse Oximetry 98 99 Oxygen Delivery Method 04/14/24 15:30 04/14/24 16:00 04/14/24 16:00 Pulse Rate 78 Respiratory Rate 35 H Blood Pressure 154/90 H 148/86 H Pulse Oximetry 96 Oxygen Delivery Method 04/14/24 16:30 04/14/24 16:30 04/14/24 17:00 Pulse Rate 104 H 109 H Respiratory Rate 29 H 31 H Blood Pressure 137/92 H Pulse Oximetry 95 98 Oxygen Delivery Method 04/14/24 17:01 04/14/24 17:01 04/14/24 17:30 Pulse Rate 107 H Respiratory Rate 19 Blood Pressure 144/95 H 149/89 H Pulse Oximetry 98 Oxygen Delivery Method 04/14/24 17:30 04/14/24 18:00 04/14/24 18:00 Pulse Rate 98 H 91 H Respiratory Rate 19 30 H Blood Pressure 136/83 Pulse Oximetry 97 96 Oxygen Delivery Method 04/14/24 18:30 04/14/24 19:00 04/14/24 19:14 Pulse Rate 102 H 93 H 107 H Respiratory Rate 33 H 30 H Blood Pressure 133/88 Pulse Oximetry 96 97 Oxygen Delivery Method 04/14/24 19:15 04/14/24 19:15 04/14/24 19:40 Pulse Rate 105 H Respiratory Rate Blood Pressure 133/88 Pulse Oximetry 94 Oxygen Delivery Method Room Air MDM - Chest Pain Lab Data Attestation: I reviewed the patient's lab results. 04/14/24 14:10 04/14/24 14:10 Labs: Lab Results 04/14/24 04/14/24 Range/Units 14:10 16:05 WBC 8.9 (4.5-11.0) X10^3/uL RBC 4.44 (4.0-5.2) X10^6/uL Hgb 12.9 (12.0-16.0) g/dL Hct 38.3 (36-46) % MCV 86.4 (80-100) fL MCH 29.0 (26-34) PG MCHC 33.6 (30-36) % RDW 15.1 H (11.6-14.8) % Plt Count 272 (150-400) X10^3/uL Neut % (Auto) 57.4 (50-75) % Lymph % (Auto) 31.1 (25-40) % Rowan % (Auto) 8.9 (3-14) % Eos % (Auto) 2.0 (2-4) % Baso % (Auto) 0.6 (0-2) % Neut # (Auto) 5100 (3338-7986) /uL Lymph # (Auto) 2800 (4416-0527) /uL Rowan # (Auto) 800 (0-900) /uL Eos # (Auto) 200 (0-450) /uL Baso # (Auto) 100 (0-100) /uL Sodium 140 (137-145) mmol/L Potassium 3.1 L (3.4-5.1) mmol/L Chloride 106 (98-107) mmol/L Carbon Dioxide 25 (22-32) mmol/L BUN 4 L (7-17) mg/dL Creatinine 0.55 (0.52-1.04) mg/dL Estimated GFR > 60 (>60) mL/min BUN/Creatinine Ratio 7.3 (6-22) Glucose 108 H (70-100) mg/dL Lactate 1.3 (0.7-2.1) mmol/L Calcium 9.6 (8.4-10.2) mg/dL Total Bilirubin 0.8 (0.2-1.3) mg/dL AST 33 (14-36) IU/L ALT 27 (<35) IU/L Alkaline Phosphatase 135 H (38-126) U/L Total Protein 8.5 H (6.3-8.2) g/dL Albumin 4.8 (3.5-5.0) g/dL Globulin 3.7 (1.7-4.1) g/dL Albumin/Globulin Ratio 1.3 (1.0-2.8) Lipase 59 (23-300) U/L Procalcitonin 0.055 (<0.5) ng/mL Salicylates < 1.0 (<20) mg/dL U Opiates 300ng/mL cut Negative (Negative) Ur Oxycodone Screen Negative (Negative) Urine Methadone Screen Positive H (Negative) Acetaminophen < 10 (10-30) ug/mL Ur Barbiturates Screen Negative (Negative) U Tricyclic Antidepress Negative (Negative) Ur Phencyclidine Scrn Negative (Negative) Ur Amphetamines Screen Positive H (Negative) U Methamphetamines Scrn Positive H (Negative) Ur MDMA Scrn (Ecstasy) Negative (Negative) U Benzodiazepines Scrn Negative (Negative) Urine Cocaine Screen Negative (Negative) U Marijuana (THC) Screen Positive H (Negative) Urine pH Normal (Normal) Urine Specific [place] Normal (Normal) Ethyl Alcohol < 10 ( - 10) mg/dL Ur Creatinine Normal (Normal) Point of Care Testing Test Results Negative Urine Dip Bedside Urine Glucose Negative Bedside Urine Bilirubin - Negative Bedside Urine Ketone +++ 80 Urine Specific [place] 1.025 Bedside Urine Occult Blood - Negative Bedside Urine pH 6.0 Bedside Urine Protein - Negative Bedside Urine Urobilinogen - Negative Bedside Urine Nitrite - Negative Bedside Urine Leukocytes - Negative Esterase ECG Data Attestation: I personally reviewed and interpreted this ECG as follows: Interpretation: Normal sinus rhythm with rate 61, no obvious ST segment elevation or depression changes. KY interval 124, QRS 86, QTC 416. MDM Narrative Medical decision making narrative: Prior episode chest pain resolved, history ongoing opiate use, apparently including methadone she states dispensed from an area clinic prescriber, requesting methadone. Has been on Suboxone in the past. I offered PO Clonidine, given. EKG and troponin negative. Nausea resolved, able to take PO potassium repletion for low blood level. Offered neonatal social worker consut, declined. She denied thoughts of wanting hurt herself or others. She wanted to go home, discharged per her request. She declined neonatal social worker consult when offered. Follow-up for further testing chest pain as an outpatient advised, contact info provided for local senior informatica etl developer, return precaustions discussed Discharge Plan Departure Patient Disposition: Home Clinical Impression: Chest pain, History of methadone use Instructions: DI for Hypokalemia, DI for Chest Pain, Methadone Activity Restrictions/Additional Instructions: Chest discomfort and nausea, history of chronic opiate use, followed by methadone Clinic and [facility], EKG and blood testing not suggestive of heart attack, low potassium noted, oral potassium given. Methadone not dispensed from the emergency department. Oral clonidine dose given, you said you had a supply this, you could use this in place of opiates and methadone if you choose. Follow up with methadone clinic tomorrow advised. You denied any thoughts of hurting yourself or others. Consider recheck of your potassium levels in clinic in follow up. Also given contact information for local senior informatica etl developer Dr. Chavis, if he would like further cardiac testing as an outpatient, though you might require referral from your primary care provider. Return to this/nearest emergency department for any change worsening symptoms or any concerns prior to your methadone clinic follow up Prescriptions: No Action acetaminophen 325 mg Tablet 650 mg PO Q6HR PRN (Reason: As Needed For Fever/Mild Pain) Qty: 30 0RF nicotine 14 mg/24 hr Patch 24 Hour 21 mg topical DAILY Qty: 30 0RF melatonin 3 mg Tablet 3 mg PO BEDTIME Qty: 30 0RF aspirin 81 mg Tablet,Delayed Release (Dr/Ec) 81 mg PO DAILY Qty: 30 0RF lorazepam 1 mg Tablet 1 mg PO Q4HR PRN (Reason: Anxiety) Qty: 30 0RF enoxaparin [Lovenox] 40 mg/0.4 mL Syringe 40 mg subcut DAILY Qty: 30 0RF sennosides [senna] 8.6 mg Tablet 17.2 mg PO BEDTIME Qty: 30 0RF pantoprazole 40 mg Tablet,Delayed Release (Dr/Ec) 40 mg PO 0700 Qty: 30 0RF Suboxone 1.5 tab sublingual 0600,1700 Qty: 90 0RF Referrals: Miscellaneous,Doctor, MD [Primary Care Provider] - Stand Alone Forms: Patient Portal/API
--- NOTE | 2024-04-14 18:00 | PC.NURSE ---
Pt removed her external catheter and urinated on herself. When asked why she did this, the pt stated that the catheter was given to her like this and that this is the reason she needs her methadone from the ER.
--- NOTE | 2024-04-14 18:16 | CM.SWNOTE ---
Addendum entered by CASSI Thakkar 04/14/24 18:54: Pt to transport home with friend, Anderson, who was waiting in lobby for pt. Anderson was escorted into pt's room, per pt request. Addendum entered by CASSI Thakkar 04/14/24 18:48: Per ED Provider, pt is still requesting methadone but is not able to obtain that dose at the ED. Per Provider, pt denies SI/HI and does not wish for any substance use treatment at this time. COMPOUND MIXER discussed [facility] has 3 available female beds and might be able to get dosed there tonight. ED Provider offered a dose of Clonidine to assist with pt's anxiety/methadone withdrawal. COMPOUND MIXER called [facility] and it was reported that there are still 3 female beds available but pt would need faxed dosing paperwork from [facility] to obtain that dose tonight and transport coordinated with [facility] for tomorrow morning. COMPOUND MIXER called [facility] and they were closed for the day. COMPOUND MIXER re-entered the room and explained plan of dose of clonidine then discharging home, pt to follow up with methadone clinic to continue dosing. Pt agreeable with plan. COMPOUND MIXER notified RN Rakesh. KEVIN Renee Original Note: ED COMPOUND MIXER Note: Pt is a 33yo female, resident of [place], presents via EMS due to general weakness/malaise before obtaining her MAT dose at [facility]. COMPOUND MIXER was consulted for pt's toxicology problem and to assess if pt would want substance use disorder treatment resources. Per EMR, pt's toxicology was positive for methamphetamine, methadone and THC. Per RN, pt admitted to utilizing fentanyl this morning to EMS medics. Prior to entering the room, pt could be heard in her room shouting for her mother. COMPOUND MIXER entered room, introduced self and role. Pt was found lying in bed and somnolent. Pt explained she could not remember why she was brought into the hospital. Pt reports she is not feeling the best at the moment. COMPOUND MIXER inquired about pt's living situation, pt could not remember who she resides with and took some time to report the city she lives in. COMPOUND MIXER discussed pt's presentation to the ED and inquired if she remembers obtaining her dose of methadone. Pt confirmed that she did not obtain her dose and is asking for it at this ED visit. Pt reports she obtains a small dose (55mg methadone). Pt reports she has been sober for a long time, about 6-8 months and thinks what happened today is because she started hanging out with a new male friend, someone she reports she doesn't know well - something funky happened here. Pt was becoming more agitated and repeatedly asked if she could get her methadone dose here at the ED today since she skipped her dosing this morning. COMPOUND MIXER discussed this will be discussed with pt's RN and ED Provider. Plan: Plan of care in ED evolving per medical clearance. ED COMPOUND MIXER following clinical course and awaiting discharge plans/social sciences professor needed. KEVIN Renee
[2024-04-14] MEDS: POTASSIUM CHLORIDE 20 MEQ/15 ML UDC 40 MEQ PO (18:18)
--- NOTE | 2024-04-14 18:30 | PC.NURSE ---
Pt linens changed. Pt given a new pair of pants and underwear.
--- NOTE | 2024-04-14 18:37 | PC.NURSE ---
Pt refusing to finish dose of liquid potassium.
[2024-04-14] MEDS: cloNIDine 0.1 MG TABLET PO (19:14)
== END 2024-04-14 19:43 | disposition home or self-care (01) ==
PROVIDERS: Emergency Medicine; Emergency Provider Emergency Medicine
DX: R07.9 Chest pain, unspecified (principal); F11.91 Opioid use, unspecified, in remission
CPT/HCPCS: 36415; 71045; 80053; 80305; 80320; 80329; 81003; 81025; 83605; 83690; 84145; 85025; 93005; 96360; 96361; 99284; G0480